=== PATIENT | female | born 1955 | race Caucasian/White ===

== ENCOUNTER 2020-04-21 14:40 | Outpatient (REF) | payer MEDICARE, SELFPAY ==
--- NOTE | 2020-04-21 | MM_ITS ---
EXAMINATION: MM SCREENING DIGITAL BREAST TOMOSYNTHESIS, BILATERAL CLINICAL INFORMATION: Screening. Asymptomatic. The lifetime risk of breast cancer based on the Tyrer-Cuzick Model is 12%. COMPARISON: Mammography: 04/04/2019, 07/19/2008; targeted left breast ultrasound 04/20/2019 and 10/19/2019; outside mammography 12/11/2017, 11/29/2017, 09/06/2016 ([facility]). TECHNIQUE: Digital breast tomosynthesis is performed in both the craniocaudal and mediolateral oblique views along with computer-aided detection (CAD). Synthesized 2D images are generated from the tomosynthesis. FINDINGS: The breasts are heterogeneously dense, which may obscure small masses (ACR BI-RADS breast composition Category c). The denser parenchymal pattern is in the upper outer quadrants. Again, there are fibrocystic changes with scattered bilateral oval and round smooth masses similar to prior exams. There is no significant mass or architectural abnormality. No abnormal calcifications. No significant changes. IMPRESSION: No significant changes from prior studies. ASSESSMENT: BI-RADS 2: Benign RECOMMENDATION: Routine annual mammography screening. This patient's information was entered into a reminder system with a target due date for their next mammogram.
[2020-04-21 17:18] LABS: T4 Thyroxine 7.9 ug/dL (4.5-12.0); Thyroid Stimulating Hormone 4.09 mIU/mL (0.32-4.0)
== END 2020-04-21 14:41 | disposition home or self-care (01) ==
LOC: HO.MAMMO 14:40
PROVIDERS: PCP Family Medicine; Visit Provider Family Medicine
DX: Z12.31 Encounter for screening mammogram for malignant neoplasm of breast (principal); E03.9 Hypothyroidism, unspecified
CPT/HCPCS: 36415; 77063; 77067; 78014; 84436; 84443

== ENCOUNTER 2020-06-15 08:33 | Outpatient (REF) | payer MEDICARE, SELFPAY | END 2020-06-15 08:34 | disposition home or self-care (01) | LOC: HO.HMGCLDS 08:33 | PROVIDERS: PCP Family Medicine; Visit Provider Internal Medicine | DX: Z20.828 Contact with and (suspected) exposure to other viral communicable diseases (principal) | CPT/HCPCS: C9803; U0003 ==

== ENCOUNTER 2020-10-05 09:40 | Outpatient (REF) | payer MEDICARE, SELFPAY ==
[2020-10-05 12:09] LABS: Free T4 (Free Thyroxine) 0.89 ng/dL (0.71-1.85)
== END 2020-10-05 09:41 | disposition home or self-care (01) ==
LOC: HO.LAB 09:40
PROVIDERS: Absent Provider Family Medicine; PCP Family Medicine; Visit Provider Surgery
DX: L98.9 Disorder of the skin and subcutaneous tissue, unspecified (principal); E03.9 Hypothyroidism, unspecified
CPT/HCPCS: 36415; 84439; 84443; 99202

== ENCOUNTER 2020-10-26 12:46 | Outpatient (REF) | payer MEDICARE, SELFPAY ==
[2020-10-26 12:35] VITALS: BP 161/94; PULSE 79; RESP 19; TEMP 37.2; O2SAT 97; BMI 34.3
--- NOTE | 2020-10-26 13:11 | W.PM.OPN ---
Operative Note Operative Note Date of Service: 10/26/20 Narrative: Preop diagnosis: Multiple skin lesions on the face Postop diagnosis: Multiple skin lesions on the face Procedure: Excision x3 and cauterization x1 of skin lesions on the face under local anesthesia Surgeon: Floyd Huang MD The patient is a 65 year female who wanted skin lesions on the face removed. She pointed to 3 skin lesions the left side of her face at the cheek, measuring in size from about 2 mm to about 4 mm . She pointed to a skin lesion on the right side of the he is the upper eyelid area measuring about 4 mm on a narrow stalk. All of these had narrow bases and were consistent with papillomatous lesions. She understood the technique of excision/cauterization under local anesthesia. She was aware of the risks, benefits, and alternatives. She was brought to the minor procedure room. She was placed supine. Alll the lesions were prepped and draped. Lidocaine 1% was used to infiltrate the bases of each lesions an. I then excised these lesions using fine scissors at the base. I cauterized the excision sites using an i-STAT for hemostasis. There was a small lesion measuring about 2 mm in size the left cheek that was cauterized. I applied Steri-Strips on all of the excision sites. She tolerated the procedure well with and there were no complications noted. She was instructed on wound care. There was minimal blood loss. She will see me in the office in about 1-2 weeks for a wound check.
== END 2020-10-26 12:47 | disposition home or self-care (01) ==
LOC: HO.MS 12:46
PROVIDERS: PCP Family Medicine; Visit Provider Surgery
PROC: (CPT 11440; principal; 2020-10-26 13:00)
DX: L98.9 Disorder of the skin and subcutaneous tissue, unspecified (principal)
CPT/HCPCS: 11440; 88304

== ENCOUNTER → 2020-11-03 11:13 | Outpatient (BNVA) | payer MEDICARE, SELFPAY | PROVIDERS: PCP Family Medicine; Visit Provider Surgery | DX: Z48.817 Encounter for surgical aftercare following surgery on the skin and subcutaneous tissue (principal); Z87.2 Personal history of diseases of the skin and subcutaneous tissue | CPT/HCPCS: 99212 ==

== ENCOUNTER 2020-12-08 21:09 | Emergency (ER) | payer MEDICARE, SELFPAY ==
[2020-12-08 21:25] VITALS: BP 146/77; PULSE 81; RESP 18; TEMP 37.4; O2SAT 96; BMI 34.3
== END 2020-12-08 22:39 | disposition left against medical advice (07) ==
PROVIDERS: Emergency Provider Emergency Medicine; PCP Family Medicine
DX: S00.512A Abrasion of oral cavity, initial encounter (principal); W45.8XXA Other foreign body or object entering through skin, initial encounter; Y93.89 Activity, other specified; Y92.010 Kitchen of single-family (private) house as the place of occurrence of the external cause; Y99.9 Unspecified external cause status
CPT/HCPCS: 99281; 99282

== ENCOUNTER 2021-01-30 13:14 | Outpatient (REF) | payer MEDICARE, SELFPAY ==
--- NOTE | ~2021-01-30 | US_ITS ---
EXAMINATION: US VENOUS ULTRASOUND WITH DOPPLER LOWER EXTREMITY, LEFT CLINICAL INFORMATION: Left lower extremity pain and swelling. Possible ruptured Somers's cyst. Assess for occult DVT. COMPARISON: None TECHNIQUE: Ultrasound of the deep veins is performed from the hip to the calf with compression sonography and color and pulse Doppler assessment. Spectral analysis with color-flow imaging is performed. FINDINGS: There is normal venous compression and respiratory variation and augmented flow. The visualized common femoral vein, superficial femoral vein, profunda femoral vein, popliteal vein, and the trifurcation region shows no evidence of deep venous thrombosis. There is no popliteal fossa cyst demonstrated. No fluid tracking in soft tissue planes to suggest ruptured Somers's cyst. US/US venous duplex LE LT IMPRESSION: 1. No DVT demonstrated in the left lower extremity. 2. No popliteal fossa cyst or fluid tracking in soft tissue planes calf.
== END 2021-01-30 13:15 | disposition home or self-care (01) ==
LOC: HO.HMGCX 13:14
PROVIDERS: PCP Family Medicine; Visit Provider Family Medicine
DX: R22.42 Localized swelling, mass and lump, left lower limb (principal); M79.662 Pain in left lower leg
CPT/HCPCS: 93971

== ENCOUNTER 2021-03-16 15:05 | Outpatient (REF) | payer MEDICARE, SELFPAY ==
--- NOTE | ~2021-03-16 | XR_ITS ---
EXAMINATION: XR KNEE, LEFT CLINICAL INFORMATION: Pain COMPARISON: None TECHNIQUE: Four views of the left knee. FINDINGS: Bone alignment is normal. No fracture or dislocation is seen. The joint spaces are normal. There is an osteophyte at the tibial tubercle probably related to old Cirilo-Schlatter's disease. There are osteophytes at the quadriceps tendon insertion to the patella and patellar tendon origin. There is a small joint effusion. XR/XR knee LT 4V IMPRESSION: Patellar osteophytes and small joint effusion.
[2021-03-16 15:47] LABS: Anion Gap 12 (12-20); Blood Urea Nitrogen 11 mg/dL (9-16); Carbon Dioxide 29 mmol/L (22-29); Chloride 104 mmol/L (96-108); Estimated Glomerular Filt Rate > 60; Potassium 4.2 mmol/L (3.3-5.1); Sodium 141 mmol/L (135-145)
[2021-03-16 16:11] LABS: Free T4 (Free Thyroxine) 0.93 ng/dL (0.71-1.85); Thyroid Stimulating Hormone 4.18 uIU/mL (0.32-4.0)
== END 2021-03-16 15:06 | disposition home or self-care (01) ==
LOC: HO.LAB 15:05
PROVIDERS: PCP Family Medicine; Visit Provider Family Medicine
DX: I10 Essential (primary) hypertension (principal); E03.9 Hypothyroidism, unspecified; M25.562 Pain in left knee
CPT/HCPCS: 36415; 73564; 80051; 82565; 84439; 84443; 84520

== ENCOUNTER → 2021-03-28 13:33 | Outpatient (BNVA) | payer MEDICARE, SELFPAY | PROVIDERS: PCP Family Medicine; Visit Provider Physician Assistant | DX: M25.462 Effusion, left knee (principal) | CPT/HCPCS: 20610; 99202; J1040 ==

== ENCOUNTER 2021-04-29 08:02 | Outpatient (REF) | payer MEDICARE, SELFPAY ==
--- NOTE | ~2021-04-29 | MM_ITS ---
EXAMINATION: MM SCREENING DIGITAL BREAST TOMOSYNTHESIS, BILATERAL CLINICAL INFORMATION: Screening. Asymptomatic. The lifetime risk of breast cancer based on the Tyrer-Cuzick Model is 14%. COMPARISON: Mammography: 04/21/2020, 04/20/2019, 04/04/2019, 12/11/2017, 11/29/2017, 09/06/2016; targeted left breast ultrasound 10/19/2019, 04/20/2019. TECHNIQUE: Digital breast tomosynthesis is performed in both the craniocaudal and mediolateral oblique views along with computer-aided detection (CAD). Synthesized 2D images are generated from the tomosynthesis. FINDINGS: The breasts are heterogeneously dense, which may obscure small masses (ACR BI-RADS breast composition Category c). There are no significant masses, abnormal calcifications, or other abnormalities. There is no interval developing density or significant mass or architectural abnormality from prior study. Fibrocystic changes are decreased particularly significant decrease in the smooth mass anterior 11:30 o'clock right breast prior exams. There are no abnormal calcifications. Skin contours are smooth. Dermal lesion again seen overlying lower right breast. MM/MM tomosynthesis screening BI IMPRESSION: No mammographic evidence of malignancy. ASSESSMENT: BI-RADS 2: Benign RECOMMENDATION: Routine annual mammography screening. This patient's information was entered into a reminder system with a target due date for their next mammogram.
== END 2021-04-29 08:03 | disposition home or self-care (01) ==
LOC: HO.MAMMO 08:02
PROVIDERS: Visit Provider Family Medicine
DX: Z12.31 Encounter for screening mammogram for malignant neoplasm of breast (principal)
CPT/HCPCS: 77063; 77067

== ENCOUNTER → 2021-05-26 12:59 | Outpatient (BNVA) | payer MEDICARE, SELFPAY | PROVIDERS: PCP Family Medicine; Visit Provider Physician Assistant | DX: M25.462 Effusion, left knee (principal) | CPT/HCPCS: 99212 ==

== ENCOUNTER 2021-09-14 13:25 | Outpatient (REF) | payer MEDICARE, SELFPAY ==
[2021-09-14 13:37] LABS: MANUAL DIFF FLAG NO
[2021-09-14 13:56] LABS: Basophils Absolute Auto 0.1 X10*3/uL (0.0-0.2); Basophils Percent Auto 0.9 % (0-2); Eosinophils Absolute Auto 0.2 X10*3/uL (0.0-0.4); Eosinophils Percent Auto 2.4 % (0-4); Hematocrit 43.6 % (37.0-47.0); Hemoglobin 13.9 g/dl (12.0-16.0); Imm Gran Abs Auto 0.03 X10*3/uL (0.00-0.03); Imm Gran Pct Auto 0.4 % (0.0-0.4); Lymphocytes Absolute Auto 2.3 X10*3/uL (1.2-4.9); Mean Corpuscular HGB Conc 31.9 g/dl (31.0-35.0); Mean Corpuscular Hemoglobin 28.7 pg (27.0-33.0); Mean Corpuscular Volume 90.1 fL (80.0-98.0); Mean Platelet Volume 10.4 fL (9.4-12.3); Monocytes Absolute Auto 0.7 X10*3/uL (0.1-1.2); Monocytes Percent Auto 8.6 % (2-11); Neutrophils Absolute Auto 4.4 x10*3/uL (2.0-8.3); Neutrophils Percent Auto 57.7 % (45-73); Platelet Count 297 X10*3/uL (160-400); Red Blood Count 4.84 X10*6/uL (4.20-5.50); Red Cell Distribution Width 13.2 % (11.0-16.0); White Blood Count 7.6 X10*3/uL (4.8-10.8)
[2021-09-14 14:17] LABS: Alanine Aminotransferase 47 U/L (0-31); Anion Gap 12 (12-20); Blood Urea Nitrogen 12 mg/dL (9-16); Carbon Dioxide 29 mmol/L (22-29); Chloride 102 mmol/L (96-108); Estimated Glomerular Filt Rate > 60; Potassium 4.2 mmol/L (3.3-5.1); Sodium 139 mmol/L (135-145)
[2021-09-14 14:39] LABS: Thyroid Stimulating Hormone 1.75 uIU/mL (0.32-4.0)
== END 2021-09-14 13:26 | disposition home or self-care (01) ==
LOC: HO.LAB 13:25
PROVIDERS: PCP Family Medicine; Visit Provider Family Medicine
DX: I10 Essential (primary) hypertension (principal); E03.9 Hypothyroidism, unspecified; Z79.899 Other long term (current) drug therapy
CPT/HCPCS: 36415; 80051; 82550; 82565; 84439; 84443; 84460; 84520; 85025

== ENCOUNTER 2022-01-29 13:49 | Outpatient (REF) | payer MEDICARE, SELFPAY ==
--- NOTE | ~2022-01-29 | XR_ITS ---
EXAMINATION: XR KNEE, LEFT CLINICAL INFORMATION: Pain in left knee COMPARISON: Left knee 03/16/2021 TECHNIQUE: Four views of the left knee. FINDINGS: There is marked joint narrowing of the medial femoral tibial joint. Subchondral cystic change of the medial femoral condyle. Marginal bone spurs of the tibia and femur at this joint compartment. These degenerative changes of the joint have progressed since prior study of 03/18/2021. The lateral femoral tibial joint is normal. There are small spurs of the patella at the patellofemoral joint. No chondrocalcinosis. No joint effusion. No fracture or dislocation. XR/XR knee LT 3V IMPRESSION: Marked degenerative change of the medial femoral tibial joint.
== END 2022-01-29 13:50 | disposition home or self-care (01) ==
LOC: HO.XRAY 13:49
PROVIDERS: PCP Internal Medicine; Visit Provider Internal Medicine
DX: M25.562 Pain in left knee (principal)
CPT/HCPCS: 73562

== ENCOUNTER → 2022-02-20 12:15 | Outpatient (BNVA) | payer MEDICARE, SELFPAY | PROVIDERS: PCP Internal Medicine; Visit Provider Physician Assistant | DX: M25.462 Effusion, left knee (principal) | CPT/HCPCS: 20610; 99212; J1040 ==

== ENCOUNTER 2022-03-01 15:00 | Outpatient (RCR) | payer MEDICARE, SELFPAY ==
--- NOTE | 2022-02-19 14:43 | MHC.PT.EP ---
[facility] [place] Office [place] [facility] [place] Office [address]inoza [address] [phone] F: [phone] F: [phone] F: [phone] F: [phone] Physical Therapy Plan of Care Date of Evaluation: Date of Surgery: n/a Diagnosis: Effusion of L knee Assessment: Patient is a 66 year old female presenting to PT with complaints of pain in her L knee. Pt reports onset of pain began about 1 year ago due to a bakers cyst rupture. She presents today with impairments in pain, knee strength, hip strength. 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 Clinical presentation today is most consistent with signs and sx associated with x-ray findings of knee arthritis and pt will benefit from skilled PT to address the following problems and impairments noted upon evaluation: pain, knee strength, hip strength. These problems limit the patient with the following functional activities: ambulation, stair negotiation, gardening, walking dogs. The prescribed treatment plan of care is medically necessary. Co-morbidities of HTN were identified and taken into considerations of plan of care. Pt was educated on HEP, role of PT, prognosis, POC. Frequency and Duration: The patient will be seen 2 x week x 4 weeks Short Term Goals: Pt will demonstrate improved L knee ROM to pain free in 2 weeks. Pt will demonstrate improved knee MMT strength to 5/5 in 2 weeks. Pt will demonstrate improved hip MMT strength by 1/3 MMT in 2 weeks. Retirement Goals: Pt will demonstrate improved LEFI score by 9 points in 4 weeks for improved functional mobility. Pt will demonstrate ability to ambulate on a variety of surfaces with min to no pain in 4 weeks for improved ability to walk her dogs. Pt will demonstrate ability to negotiate stairs with min to no pain in 4 weeks for improved access to her home. Treatment Plan: Modalities to reduce pain, spasms and effusion. Manual therapy to restore motion and function. Therapeutic exercise to improve strength and flexibility. Neuromuscular re-education for posture and balance. Therapeutic activities to return to functional activities of daily living. Electronically signed by: Mendy Aguilera, PT, DPT, ATC Please sign and return to therapist. Thank you for your referral.
--- NOTE | 2022-03-02 08:50 | MHC.PT.DC ---
[facility] [place] Office [place] Office [place] Office [address] [phone] F: [phone] F: [phone] F: [phone] F: [phone] Physical Therapy Discharge Report Diagnosis: Effusion of L knee Date of Surgery: n/a Date of Evaluation: 02/19/22 Date of Discharge: 03/02/22 Treatments to Date: 3 Cancellations to Date: 0 No Shows to Date: 0 Discharge Status: Patient Elected to Stop Discharge Summary: Pt self d/c. Has a high copay and states her pain is better. Would like to continue with HEP at home. Electronically signed by: Mendy Aguilera, PT, DPT, ATC Please sign and return to therapist. Thank you for your referral.
== END 2022-03-02 08:50 | disposition home or self-care (01) ==
LOC: HO.PTCHIC 15:00
PROVIDERS: PCP Internal Medicine; Visit Provider Physician Assistant
DX: M25.462 Effusion, left knee (principal)
CPT/HCPCS: 97110; 97161

== ENCOUNTER 2022-05-05 07:55 | Outpatient (REF) | payer MEDICARE, SELFPAY ==
--- NOTE | ~2022-05-05 | MM_ITS ---
EXAMINATION: MM SCREENING DIGITAL BREAST TOMOSYNTHESIS, BILATERAL CLINICAL INFORMATION: Screening. Asymptomatic. The lifetime risk of breast cancer based on the Tyrer-Cuzick Model is 11%. COMPARISON: Mammography: 04/29/2021, 04/21/2020; outside mammography 04/04/2019, 12/11/2017, 11/29/2017 ([facility]), ultrasound left breast 04/20/2019, 10/19/2019. TECHNIQUE: Digital breast tomosynthesis is performed in both the craniocaudal and mediolateral oblique views along with computer-aided detection (CAD). Synthesized 2D images are generated from the tomosynthesis. FINDINGS: The breasts are heterogeneously dense, which may obscure small masses (ACR BI-RADS breast composition Category c). Fibrocystic changes noted on prior imaging. Current exam shows circumscribed smooth mass central 11:30 left breast approximately 1.7 x 1.4 cm, likely a cyst. Patient will be recalled for targeted ultrasound. Right breast has a smooth 1.5 cm mass with obscured margins mid 11:30. There is focal increased parenchymal attenuation mid upper right breast on MLO view likely summation artifact. Patient will be recalled for additional spot views and targeted ultrasound. The remainder of the breasts show no significant changes from prior studies. No other significant mass or architectural abnormality or abnormal calcifications. The axilla and skin contours are unremarkable. MM/MM tomosynthesis screening BI IMPRESSION: Right: -1.5 cm mass with obscured margins mid 11:30, likely a cyst. -Focal asymmetric density mid upper breast on MLO view, likely summation artifact. Left: -Circumscribed mass 1.7 cm central left 11:30, likely a cyst. ASSESSMENT: BI-RADS 0: Incomplete - Need Additional Imaging Evaluation RECOMMENDATION: 1. Additional views of the right breast (spot MLO, ML). 2. Bilateral targeted ultrasound. 3. Radiology department staff will contact the patient for additional imaging. This patient's information was entered into a reminder system with a target due date for their next mammogram.
== END 2022-05-05 07:56 | disposition home or self-care (01) ==
LOC: HO.MAMMO 07:55
PROVIDERS: PCP Internal Medicine; Visit Provider Internal Medicine
DX: Z12.31 Encounter for screening mammogram for malignant neoplasm of breast (principal)
CPT/HCPCS: 77063; 77067

== ENCOUNTER 2022-05-09 07:48 | Outpatient (REF) | payer MEDICARE, SELFPAY ==
--- NOTE | ~2022-05-09 | MM_ITS ---
EXAMINATION: MM DIAGNOSTIC DIGITAL BREAST TOMOSYNTHESIS, RIGHT US DIAGNOSTIC ULTRASOUND BREAST, BILATERAL CLINICAL INFORMATION: Recall from screening for bilateral oval circumscribed masses, and parenchymal asymmetry upper right breast, suspected summation artifact. COMPARISON: Mammography: 05/05/2022, 04/29/2021 TECHNIQUE: Digital breast tomosynthesis is performed. 2D images are generated from the tomosynthesis. The following views are obtained: Spot MLO x2, ML. Bilateral targeted breast ultrasound is performed using grayscale imaging and color Doppler without and with harmonics. FINDINGS: The breasts are heterogeneously dense, which may obscure small masses (ACR BI-RADS breast composition Category c). The additional views right breast show no persistent asymmetric density or architectural abnormality upper breast. Finding noted at screening on MLO view consistent with summation artifact as suspected. Ultrasound right breast demonstrates a dominant simple cyst 12:00 position 8 cm from nipple measuring 1.5 cm. There are 2 small satellite simple cysts in the interrogated areas measuring under 0.5 cm. The cysts are anechoic and show increased through-transmission of sound. No color flow. Ultrasound left breast demonstrates a dominant simple cyst 11:00 position 9 cm from nipple measuring 1.5 cm. There are scattered small satellite simple cysts in the interrogated area measuring under 0.5 cm. The cysts are anechoic and show increased through-transmission of sound. No color flow. Results are discussed with the patient at time of visit. MM/MM tomosynthesis added views R IMPRESSION: 1. Additional views show no persistent asymmetric density or architectural abnormality. 2. Bilateral simple cysts, largest on right 1.5 cm and largest on left 1.5 cm. ASSESSMENT: BI-RADS 2: Benign RECOMMENDATION: Routine annual mammography screening. This patient's information was entered into a reminder system with a target due date for their next mammogram.
== END 2022-05-09 07:49 | disposition home or self-care (01) ==
LOC: HO.MAMMO 07:48
PROVIDERS: PCP Internal Medicine; Visit Provider Internal Medicine
DX: N63.15 Unspecified lump in the right breast, overlapping quadrants (principal); N63.22 Unspecified lump in the left breast, upper inner quadrant
CPT/HCPCS: 76642; 77061; 77065

== ENCOUNTER 2022-10-22 08:26 | Outpatient (REF) | payer MEDICARE, SELFPAY ==
[2022-10-22 10:00] LABS: Alanine Aminotransferase 54 U/L (0-31); Anion Gap 10 (12-20); Aspartate Amino Transferase 46 U/L (5-31); Blood Urea Nitrogen 12 mg/dL (9-16); Calcium 9.4 mg/dL (8.4-10.2); Carbon Dioxide 30 mmol/L (22-29); Chloride 104 mmol/L (96-108); Cholesterol 195 mg/dL; Estimated Glomerular Filt Rate > 60; Glucose Fasting 155 mg/dL (60-99); HDL Cholesterol 37 mg/dL; LDL Cholesterol Calculated 118 mg/dl; Potassium 4.6 mmol/L (3.3-5.1); Sodium 139 mmol/L (135-145); Triglycerides 204 mg/dL
[2022-10-22 10:04] LABS: Free T4 (Free Thyroxine) 0.81 ng/dL (0.71-1.85); Vitamin D 25-OH Total 16.5 ng/mL (>30)
== END 2022-10-22 08:27 | disposition home or self-care (01) ==
LOC: HO.LAB 08:26
PROVIDERS: PCP Internal Medicine; Visit Provider Internal Medicine
DX: E78.5 Hyperlipidemia, unspecified (principal); E03.9 Hypothyroidism, unspecified; Z78.0 Asymptomatic menopausal state
CPT/HCPCS: 36415; 80048; 80061; 82306; 84439; 84443; 84450; 84460

== ENCOUNTER 2022-11-16 07:14 | Outpatient (REF) | payer MEDICARE, SELFPAY ==
--- NOTE | ~2022-11-16 | XR_ITS ---
EXAMINATION: Knee x-ray CLINICAL INFORMATION: Pain COMPARISON: Previous x-ray January 2022 TECHNIQUE: Standing AP view of both knees and lateral and sunrise view of the left knee FINDINGS: Left: Bone alignment is normal. Cortical irregularity of the medial femoral condyle questionable old osteochondritis desiccation's or subchondral injury. Medial femoral tibial joint space narrowing. Arthritis at the medial femoral tibial and patellofemoral joints. Osteophyte at the quadriceps tendon insertion to the patella and patellar tendon origin. Small joint effusion. Standing AP view of the right knee demonstrates arthritis at the medial femoral tibial joint XR/XR knee standing BI IMPRESSION: New subchondral irregularity of the medial femoral condyle suggestive of subchondral injury or osteochondritis dissecans. Arthritis at the medial femoral tibial and patellofemoral joints.
--- NOTE | ~2022-11-16 | XR_ITS ---
EXAMINATION: Knee x-ray CLINICAL INFORMATION: Pain COMPARISON: Previous x-ray January 2022 TECHNIQUE: Standing AP view of both knees and lateral and sunrise view of the left knee FINDINGS: Left: Bone alignment is normal. Cortical irregularity of the medial femoral condyle questionable old osteochondritis desiccation's or subchondral injury. Medial femoral tibial joint space narrowing. Arthritis at the medial femoral tibial and patellofemoral joints. Osteophyte at the quadriceps tendon insertion to the patella and patellar tendon origin. Small joint effusion. 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 Arthritis at the medial femoral tibial and patellofemoral joints.
== END 2022-11-16 07:15 | disposition home or self-care (01) ==
LOC: HO.HOSX 07:14
PROVIDERS: Visit Provider Physician Assistant
DX: M17.12 Unilateral primary osteoarthritis, left knee (principal)
CPT/HCPCS: 20610; 73560; 73565; 99212; J1040

== ENCOUNTER 2022-11-26 14:24 | Outpatient (REF) | payer MEDICARE, SELFPAY ==
[2022-11-26 16:40] LABS: Estimated Average Glucose 166 mg/dL; Hemoglobin A1c % 7.4 %
== END 2022-11-26 14:25 | disposition home or self-care (01) ==
LOC: HO.HMGCLDS 14:24
PROVIDERS: PCP Internal Medicine; Visit Provider Internal Medicine
DX: R73.01 Impaired fasting glucose (principal); Z83.3 Family history of diabetes mellitus
CPT/HCPCS: 36415; 83036

== ENCOUNTER 2023-04-23 08:06 | Outpatient (REF) | payer MEDICARE, SELFPAY | END 2023-04-23 08:07 | disposition home or self-care (01) | LOC: HO.MAMMO 08:06 | PROVIDERS: PCP Internal Medicine; Visit Provider Internal Medicine | DX: Z13.820 Encounter for screening for osteoporosis (principal); Z78.0 Asymptomatic menopausal state; E55.9 Vitamin D deficiency, unspecified | CPT/HCPCS: 77080 ==

== ENCOUNTER 2023-05-11 07:48 | Outpatient (REF) | payer MEDICARE, SELFPAY ==
--- NOTE | ~2023-05-11 | MM_ITS ---
EXAMINATION: MM SCREENING DIGITAL MAMMOGRAPHY, BILATERAL CLINICAL INFORMATION: Screening. Asymptomatic. COMPARISON: Mammography: This study is compared with prior exams dating back to 2019. TECHNIQUE: 2-D Digital mammography and tomosynthesis is performed in craniocaudal and mediolateral oblique views along with computer-aided detection (CAD). FINDINGS: There are scattered areas of fibroglandular density (ACR BI-RADS breast composition Category b). In the upper outer quadrant of the left breast, there is an asymmetry for which additional mammographic imaging is advised. Sonography may be performed at the discretion of the diagnostic radiologist. When the additional imaging is performed, a laterally exaggerated 2-D craniocaudal view of the left breast with tomosynthesis is advised. In the right breast, there are no significant masses, abnormal calcifications, or other abnormalities. MM/MM screening mammo BI IMPRESSION: Left breast asymmetry warrants additional mammographic imaging. Sonography may be performed at the discretion of the diagnostic radiologist. When the additional imaging is performed, a laterally exaggerated 2-D craniocaudal view of the left breast with tomosynthesis is advised. No mammographic signs of malignancy right breast. ASSESSMENT: BI-RADS BI-RADS 0 - Incomplete: Needs additional Imaging. RECOMMENDATION: 1. Additional views of the left breast 2. Targeted ultrasound if warranted after review of the additional views. 3. Radiology department staff will contact the patient for additional imaging. Additional Imaging required This patient's information was entered into a reminder system with a target due date for their next mammogram.
== END 2023-05-11 07:49 | disposition home or self-care (01) ==
LOC: HO.MAMMO 07:48
PROVIDERS: PCP Internal Medicine; Visit Provider Internal Medicine
DX: Z12.31 Encounter for screening mammogram for malignant neoplasm of breast (principal)
CPT/HCPCS: 77063; 77067

== ENCOUNTER → 2023-05-11 08:00 | Outpatient (BNV) | payer MEDICARE, SELFPAY | PROVIDERS: PCP Internal Medicine; Visit Provider Radiology Diagnostic Radiology | DX: Z12.31 Encounter for screening mammogram for malignant neoplasm of breast (principal) | CPT/HCPCS: 77063; 77067 ==

== ENCOUNTER 2023-05-21 09:35 | Outpatient (AMB) | payer MEDICARE, SELFPAY ==
[2023-05-21 11:19] VITALS: BP 140/82; PULSE 82; TEMP 36.6; O2SAT 98; BMI 34.3
--- NOTE | 2023-05-21 11:19 | AM.OFFWIN_ITS ---
Intake Vital Signs 05/21/23 11:19 Height 5 ft 4 in Weight 200 lb BMI 34.3 BP 140/82 H Blood Pressure Location Rt brachial Position Sitting Pulse 82 Pulse Source Pulse Oximeter Temp 97.8 F Temp Source Temporal Artery Scan Pulse Oximetry (%) 98 Oxygen Delivery Method Room Air Intake Visit Reasons: EP, left side of hip and leg pain Intake Note: pt is here today for left side of hip and leg pain Patient Tobacco Use Status: Never used Tobacco Allergies Sulfa (Sulfonamide Antibiotics) Allergy (Unknown, Verified 05/21/23 11:48) Unknown Medication List - Last Reconciled 05/21/23 by Jacobo Frederick MD cholecalciferol (vitamin D3) 1,250 mcg PO QWEEK 3 months diclofenac sodium 1% 4 grams topical QID PRN diclofenac sodium 3% 0.1 grams topical BID 90 days levothyroxine 125 mcg PO DAILY lisinopril 10 mg PO DAILY Do you need a note to return to daycare/school/sports/work: Yes HPI EP, left side of hip and leg pain HPI Details 68-year-old female presents to the [facility] for a sick visit. Patient is complaining of pain in the left hip for the past 3 days. Pain is radiating into the left leg. No fall or injury. She has difficulty walking and comes into the exam room in a wheelchair. [facility] Medical History (Updated 05/21/23 @ 11:49 by Jacobo Frederick MD) Essential hypertension Family history of diabetes mellitus in first degree relative Impaired fasting glucose Vitamin D deficiency Lumbago without sciatica History of depression Seasonal allergies Osteoarthritis of left knee Atrophic vaginitis History of COVID-19 Urinary, incontinence, stress female Dyslipidemia Acquired hypothyroidism Skin lesion of face Surgical History History of cataract surgery History of right cataract surgery History of carpal tunnel surgery of right wrist H/O tubal ligation Hx of tonsillectomy History of excision of lesion Family History (Updated 11/26/22 @ 14:37 by Nesha Jay MD) Mother Colon cancer Diabetes mellitus Father Diabetes mellitus Social History Housing: House Alcohol intake: never Patient Tobacco Use Status: Never used Tobacco e-Cigarette/Vaping Use: Never Used Current occupational status: employed 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 Cognitive needs: No Hearing needs: No Vision needs: Yes Physical Exam Vital Signs: Last Vital Signs Temp 97.8 F 05/21/23 11:19 Pulse 82 05/21/23 11:19 BP 140/82 H 05/21/23 11:19 Pulse Ox 98 05/21/23 11:19 Oxygen Delivery Method Room Air 05/21/23 11:19 BMI result Body Mass Index 34.3 Const General: cooperative and healthy appearing Nutritional Appearance: well nourished Orientation/consciousness: patient oriented x3 Limitations: no limitations HEENT Head: Yes normal to inspection Eyes General: appearance normal, both eyes and all related structures Neck Neck: Yes normal visual inspection Chest Chest palpation & inspection: normal palpation of entire chest wall Resp Effort & Inspection: normal respiratory effort Neuro General: patient oriented x3 Extrem Other: Left hip: Pain on abduction. Internal and external rotation elicits minimal pain. Assessment & Plan Assessment & Plan (1) Left hip pain: Code(s): M25.552 - Pain in left hip Plan: Toradol injection provided. Anti-inflammatories and muscle relaxant called in. Physical therapy suggested. Patient was advised rest. Orders: Orders AMB Ketorolac Injection Today M54.50 - Low back pain, unspecified Medications: New ketorolac 30 mg IM ONCE 1 mL 0RF M54.50 - Low back pain, unspecified ketorolac 60 mg (2 mL) IM ONCE 2 mL 0RF M54.50 - Low back pain, unspecified Coding Level of Care Code Est Pt Level 4 (07894) Diagnoses Left hip pain M25.552
== END 2023-05-21 12:50 | disposition home or self-care (01) ==
PROVIDERS: PCP Internal Medicine; Visit Provider Internal Medicine
DX: M25.552 Pain in left hip (principal); M54.50 Low back pain, unspecified
CPT/HCPCS: 96372; 99214; J1885

== ENCOUNTER 2023-06-19 13:43 | Outpatient (REF) | payer MEDICARE, SELFPAY ==
--- NOTE | ~2023-06-19 | US_ITS ---
EXAMINATION: MM DIAGNOSTIC DIGITAL BREAST TOMOSYNTHESIS, LEFT US BREAST LIMITED, LEFT MAMMOGRAPHY: CLINICAL INFORMATION: Asymmetry left breast upper quadrant. COMPARISON: Mammography: 05/11/2023, 05/05/2022, 04/29/2021. TECHNIQUE: Digital left breast tomosynthesis is performed in the following views: Full-field left 3-D mediolateral view, 3-D spot compression left MLO view, and a full-field left lateral exaggerated CC view. FINDINGS: The breasts are heterogeneously dense, which may obscure small masses (ACR BI-RADS breast composition Category c). Spot magnification views and additional views demonstrate persistence of nodular asymmetry in the upper outer left breast, similar to prior exams. This will be evaluated by ultrasound. Otherwise, no additional masses, suspicious grouped calcifications, or areas of architectural distortion. ULTRASOUND: CLINICAL INFORMATION: Asymmetry left breast upper outer quadrant. COMPARISON: 05/09/2022 TECHNIQUE: Targeted sonographic evaluation was performed using a high frequency linear transducer. Selected archived documentation. FINDINGS: LEFT BREAST: There is fibrocystic tissue in the superior lateral left breast. There are are numerous cysts of different caliber in this region, the largest measuring 1.0 cm. There are at least 2 ridges of fibrocystic tissue in the upper outer left breast. There is no suspicious mass, abnormal shadowing, or other abnormality. US/US breast LT limited mamm only IMPRESSION: Benign fibrocystic changes in the upper outer left breast, similar to prior studies. No further follow-up recommended. Recommend the patient resume routine annual screening. OVERALL ASSESSMENT: Mammography: BI-RADS 2 - Benign Findings Ultrasound: BI-RADS 2 - Benign Findings RECOMMENDATION: 1 year F/U Results were provided to the patient at time of visit by the technologist. This patient's information was entered into a reminder system with a target due date for their next mammogram.
== END 2023-06-19 13:44 | disposition home or self-care (01) ==
LOC: HO.MAMMO 13:43
PROVIDERS: PCP Internal Medicine; Visit Provider Internal Medicine
DX: N64.89 Other specified disorders of breast (principal)
CPT/HCPCS: 76642; 77061; 77065

== ENCOUNTER → 2023-06-19 15:00 | Outpatient (BNV) | payer MEDICARE, SELFPAY | PROVIDERS: PCP Internal Medicine; Visit Provider Radiology Diagnostic Radiology | DX: R92.332 Mammographic heterogeneous density, left breast (principal); N60.22 Fibroadenosis of left breast | CPT/HCPCS: 76642; 77061; 77065 ==

== ENCOUNTER 2023-07-18 14:00 | Outpatient (RCR) | payer MEDICARE, SELFPAY ==
--- NOTE | 2023-06-10 14:50 | MHC.PT.EP ---
[facility] [place] Office [place] Office [place] Office [address] [phone] F: [phone] F: [phone] F: [phone] F: [phone] Physical Therapy Plan of Care Date of Evaluation: 06/10/23 Date of Surgery: Diagnosis: pain in L hip Assessment: 68 y/o female referred to PT with L hip pain. 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 Examination shows decreased lumbar AROM (especially extension with pain), decreased L LE strength, intact reflexes/sensation, (+) L SLR, increased pain and impaired gait pattern. Recommend PT 2x/week for 5 weeks to address impairments, implement HEP, and optimize functional mobility. Frequency and Duration: The patient will be seen 2x/week for 5 weeks Short Term Goals: 3 weeks Compliant with HEP Pt will improve L LE strength to 4-/5 to facilitate ADL's Residential Goals: 5 weeks I with HEP and self management of sx Pt will be able to ambulate with LRAD > 25 min with pain < 3/10 Improve LEFS to 40/80 (16/80 IR) Treatment Plan: Modalities to reduce pain, spasms and effusion. Manual therapy to restore motion and function. Therapeutic exercise to improve strength and flexibility. Neuromuscular re-education for posture and balance. Therapeutic activities to return to functional activities of daily living. Electronically signed by: Michelle Gomez PT Please sign and return to therapist. Thank you for your referral.
--- NOTE | 2023-07-19 08:01 | MHC.PT.DC ---
[facility] [place] [facility] [place] [facility] [place] [facility] [address] Reza Espinoza [address] [phone] F: [phone] F: [phone] F: [phone] F: [phone] Physical Therapy Discharge Report Diagnosis: pain in L hip Date of Surgery: Date of Evaluation: 06/10/23 Date of Discharge: 07/19/23 Treatments to Date: 10 Cancellations to Date: 0 No Shows to Date: 0 Discharge Status: Achieved Goals Improved Function Independent with HEP Discharge Summary: Pt is appropriate for d/c secondary to meeting all goals, and I with HEP. She is transitioning to [employer] for strengthening and balance classes. Electronically signed by: Michelle Gomez PT Please sign and return to therapist. Thank you for your referral.
== END 2023-07-19 08:01 | disposition home or self-care (01) ==
LOC: HO.PTCHIC 14:00
PROVIDERS: PCP Internal Medicine; Visit Provider Internal Medicine
DX: M25.552 Pain in left hip (principal)
CPT/HCPCS: 97110; 97112; 97140; 97162; 97530

== ENCOUNTER 2023-10-02 13:58 | Outpatient (AMB) | payer MEDICARE, SELFPAY ==
[2023-10-02 14:00] VITALS: BP 140/72; PULSE 86; TEMP 36.7; O2SAT 96; BMI 34.7
--- NOTE | 2023-10-02 14:00 | AM.OFFWIN_ITS ---
Intake Vital Signs 10/02/23 14:00 Height 5 ft 4 in Weight 202 lb BMI 34.7 BP 140/72 H Blood Pressure Location Lt brachial Position Sitting Pulse 86 Pulse Source Pulse Oximeter Temp 98.0 F Temp Source Temporal Artery Scan Pulse Oximetry (%) 96 Oxygen Delivery Method Room Air Intake Visit Reasons: EP Cough (masked) Intake Note: pt is here today for cough started 3 weeks ago Patient Tobacco Use Status: Never used Tobacco Allergies Sulfa (Sulfonamide Antibiotics) Allergy (Unknown, Verified 10/02/23 14:00) Unknown Do you need a note to return to daycare/school/sports/work: No HPI HPI Comments History of Present Illness Details 68 y/o female patient [facility] with c/o cough that started 3 weeks ago. She has tried OTC cough remedies with no much relief. Cough keeps her up at night. Denies fevers, chills, nausea or vomiting. [facility] Medical History (Updated 05/21/23 @ 11:49 by Jacobo Frederick MD) Essential hypertension Family history of diabetes mellitus in first degree relative Impaired fasting glucose Vitamin D deficiency Lumbago without sciatica History of depression Seasonal allergies Osteoarthritis of left knee Atrophic vaginitis History of COVID-19 Urinary, incontinence, stress female Dyslipidemia Acquired hypothyroidism Skin lesion of face Surgical History History of cataract surgery History of right cataract surgery History of carpal tunnel surgery of right wrist H/O tubal ligation Hx of tonsillectomy History of excision of lesion Family History (Updated 11/26/22 @ 14:37 by Nesha Jay MD) Mother Colon cancer Diabetes mellitus Father Diabetes mellitus Social History Housing: House Alcohol intake: never Patient Tobacco Use Status: Never used Tobacco e-Cigarette/Vaping Use: Never Used Current occupational status: employed 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 Cognitive needs: No Hearing needs: No Vision needs: Yes Review of Systems Const All systems reviewed & are unremarkable except as noted in HPI and below Physical Exam Vital Signs: Last Vital Signs Temp 98.0 F 10/02/23 14:00 Pulse 86 10/02/23 14:00 BP 140/72 H 10/02/23 14:00 Pulse Ox 96 10/02/23 14:00 Oxygen Delivery Method Room Air 10/02/23 14:00 BMI result Body Mass Index 34.7 Const General: comfortable and no acute distress Nutritional Appearance: obese Orientation/consciousness: patient oriented x3 HEENT Head: Yes normocephalic Ears: external ears normal and TM's normal bilaterally General nose exam: Normal external nose present and Abnormal mucous membranes and turbinates present boggy and erythematous Face and sinus: Yes sinuses nontender Mouth: moist mucous membranes Throat: Yes posterior oropharynx normal Resp Effort & Inspection: normal respiratory effort, able to speak in complete sentences, no audible wheezes and no cough Auscultation: clear to auscultation bilaterally, no crackles, no rales, no rhonchi and no wheezes Cardio Rate: regular rate Rhythm: regular rhythm Neuro General: patient oriented x3 Assessment & Plan Assessment & Plan (1) Cough in adult: Code(s): R05.9 - Cough, unspecified Plan: - OTC cough remedies - Rest and hydrate with warm fluids and honey -Acetaminophen for pain relief. Medications: New azithromycin 500 mg PO DAILY 3 tabs 0RF 3 days R05.9 - Cough, unspecified Coding Level of Care Code Est Pt Level 3 (34066) Diagnoses Cough in adult R05.9 Time Spent (min) 15
== END 2023-10-02 14:14 | disposition home or self-care (01) ==
PROVIDERS: PCP Internal Medicine; Visit Provider Nurse Practitioner Family
DX: R05.9 Cough, unspecified (principal)
CPT/HCPCS: 99213

== ENCOUNTER 2023-12-03 12:12 | Outpatient (AMB) | payer MEDICARE, SELFPAY ==
[2023-12-03 12:21] VITALS: BP 112/70; PULSE 76; O2SAT 97; BMI 34.5
--- NOTE | 2023-12-03 12:21 | A.OFFPC_ITS ---
Vital Signs 12/03/23 12:21 Height 5 ft 4 in Weight 201 lb BMI 34.5 BP 112/70 Blood Pressure Location Lt brachial Position Sitting Pulse 76 Pulse Source Pulse Oximeter Pulse Oximetry (%) 97 Oxygen Delivery Method Room Air Intake Visit Reasons: PE Intake Note: Pt is here today for her PE: Last mammogram 06/19/23, bone density scan 04/23/23, colonoscopy 10 yrs ago in [place] Allergies Sulfa (Sulfonamide Antibiotics) Allergy (Unknown, Verified 12/03/23 12:34) Unknown Medication List - Last Reconciled 12/03/23 by Nesha Jay MD levothyroxine 125 mcg PO DAILY lisinopril 10 mg PO DAILY Tobacco use date assessed: 12/03/23 Fall risk assessment: No Falls in past year Last assessed Fall Risk: 12/03/23 Dental Screening Dental Screen Date: 12/03/23 Did you have a dental visit in the last 12 months?: Yes Did you have a dental problem in the last 6 months where you did not have access to dental care?: Yes Was dental information given to patient?: Patient has dentist HPI PE HPI Details 68-year-old lady here today for physical exam. She has acquired hypothyroidism currently on levothyroxine 125 mcg taken daily and has hypertension currently stable controlled on lisinopril 10 mg daily. . She has been feeling well, with no complaints at present time. She had a mammogram 06/19/2023 with benign findings, and a bone density scan on 04/23/2023 which showed beginning osteopenia in left femoral neck, normal in left femur and lumbar spine. Has not had any fractures. States that she had a screening colonoscopy 10 yrs ago in [place], with benign findings. She has diabetes mellitus currently diet controlled, with last hemoglobin A1c at 7.4%. Has been trying to control her blood sugar through diet and exercise. No complaints at present time [facility] Medical History (Updated 12/03/23 @ 13:02 by Nesha Jay MD) Diabetes mellitus, without long-term current use of insulin Essential hypertension Family history of diabetes mellitus in first degree relative Vitamin D deficiency Lumbago without sciatica History of depression Seasonal allergies Osteoarthritis of left knee Atrophic vaginitis History of COVID-19 Urinary, incontinence, stress female Dyslipidemia Acquired hypothyroidism Skin lesion of face Surgical History History of cataract surgery History of right cataract surgery History of carpal tunnel surgery of right wrist H/O tubal ligation Hx of tonsillectomy History of excision of lesion Family History Mother Colon cancer Diabetes mellitus Father Diabetes mellitus Social History Housing: House Alcohol intake: never Patient Tobacco Use Status: Never used Tobacco e-Cigarette/Vaping Use: Never Used Current occupational status: employed 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 1. Little interest or pleasure in doing things: not at all 2. Feeling down, depressed, or hopeless: not at all 3. Trouble falling or staying asleep, or sleeping too much: more than half the days 4. Feeling tired or having little energy: not at all 5. Poor appetite or overeating: not at all 6. Feeling bad about yourself - or that you are a failure or have let yourself or your family down: not at all 7. Trouble concentrating on things, such as reading the newspaper or watching television: not at all 8. Moving or speaking so slowly that other people could have noticed. Or the opposite - being so fidgety or restless that you have been moving around a lot more than usual: not at all 9. Thoughts that you would be better off or of hurting yourself in some way: not at all Total score: 2 Depression Screening Interpretation: Negative Depression Screening Done: Yes 49739 - PHQ-9 Billing: Yes Source: Developed by Drs. Alvarado Romano, Eliza Guzman, Raúl Feldman and colleagues, with an educational nabor from [employer]. Thrive Questionnaire Date Thrive assessed: 12/03/23 I am a: Patient What is your living situation today?: I have a steady place to live Within the past 12 months, did the food you bought not last and you didn't have the money to get more?: Never true Within the past 12 months, did you worry whether your food would run out before you got money to buy more?: Never true Do you have trouble paying for medicines?: No Do you have trouble getting transportation to medical appointments?: No Do you have trouble paying your heating and electricity bill?: No Do you have trouble taking care of your child, family member or friend?: No Do you have trouble with day-to-day activities such as bathing, preparing meals, shopping, managing finances, etc.?: No Are you currently unemployed and looking for a job?: No Are you interested in more education?: No THRIVE Score: 0 AUDIT C Alcohol Use Questionnaire (AUDIT-C) 1. How often do you have a drink containing alcohol?: Monthly or less 2. How many drinks containing alcohol do you have on a typical day when you are drinking?: 1 or 2 3. How often do you have six or more drinks on one occasion?: Never Total Score: 1 MARTINE-7 AMB Questionnaire MARTINE-7 Date MARTINE - 7 assessed: 12/03/23 Feeling nervous, anxious, or on edge: 0 = Not at all Not being able to stop or control worryin = Not at all Worrying too much about different things: 0 = Not at all Trouble relaxin = Not at all Being so restless that it is hard to sit still: 0 = Not at all Becoming easily annoyed or irritable: 0 = Not at all Feeling afraid as if something awful might happen: 0 = Not at all Total MARTINE-7 score (0-4 normal; 5-9 mild; 10-14 moderate; 15-21 severe): 0 Source: Developed by Drs. Alvarado Romano, Eliza Guzman, Raúl Feldman and colleagues, with an educational nabor from [employer]. MARTINE-7 Assessment Billing MARTINE-7 Assessment Tool: MARTINE-7 Assessment 84999 Review of Systems Const Denies body aches, Denies fatigue, Denies fever(s), Denies headache(s) and Denies weakness Eyes Details: Yearly with Dr. Paez Denies change in vision ENT Denies dizziness, Denies headache(s), Denies nasal congestion, Denies nasal discharge and Denies sore throat Card Denies chest pain, Denies lightheadedness, Denies palpitations and Denies dyspnea Resp Denies chest congestion, Denies cough, Denies dyspnea and Denies wheezing GI Denies abdominal pain, Denies change in bowel habits and Denies heartburn Denies hematuria, Denies urinary frequency, Denies dysuria and Denies urinary urgency Musc Reports as per HPI Skin/Breast Denies breast pain, Denies breast mass, Denies lesions and Denies rash Neuro Denies dizziness, Denies headache(s) and Denies weakness Psych Reports no additional complaints Endo Denies fatigue, Denies polydipsia, Denies polyuria and Denies palpitations Brian/Lymph Denies easy bleeding and Denies easy bruising Aller/Immun Denies seasonal rhinorrhea and Denies wheezing Physical exam (Primary Care) Vital Signs: Last Vital Signs Pulse 76 12/03/23 12:21 BP 112/70 12/03/23 12:21 Pulse Ox 97 12/03/23 12:21 Oxygen Delivery Method Room Air 12/03/23 12:21 BMI result Body Mass Index 34.5 BMI Assessment/Plan discussion: High BMI High, discussed plan: lifestyle, weight reduction, dietary and physical activity Tobacco/Smoking Status: Tobacco use Status Tobacco use date assessed 12/03/23 12/03/23 12:30 Patient Tobacco Use Status Never used Tobacco 12/03/23 12:25 e-Cigarette/Vaping Use Never Used 12/03/23 12:25 PHQ-9: PHQ-9 Score PHQ-9: Total score 2 12/03/23 13:12 Depression Screening Interpretation: Negative Thrive Assessment: Date of Thrive Assessment Date Thrive assessed 12/03/23 12/03/23 13:12 Const Other: Alert oriented x3, no acute distress noted, ambulatory with normal gait General: comfortable, no acute distress, alert and Physically active Nutritional Appearance: obese Orientation/consciousness: patient oriented x3 HENWI Head: Yes normocephalic Ears: hearing grossly normal bilaterally, external ears normal, TM's normal bilaterally and EAC's normal General nose exam: Normal external nose present Face and sinus: Yes sinuses nontender and Yes face symmetric Mouth: Normal oral and palatal mucosa present, oropharynx normal and moist mucous membranes Eyes General: appearance normal, both eyes and all related structures Neck Neck: Yes full ROM, Yes no lymphadenopathy and Yes supple Thyroid: Thyroid normal Chest Chest palpation & inspection: normal inspection of the chest and normal palpation of entire chest wall Breast/axilla inspection: normal inspection of the breasts and Other (Nipple piercing) Breast/axilla palpation: normal palpation of the breasts Resp Effort & Inspection: normal respiratory effort and able to speak in complete sentences Auscultation: clear to auscultation bilaterally Cardio Rate: regular rate Rhythm: regular rhythm Heart sounds: S1 normal heart sound present and S2 normal heart sound present GI Inspection: Yes obesity and Yes other (Pierced navel) Palpation (GI): Soft to palpation, nontender, no guarding and no masses Auscultation: normal bowel sounds General: Yes no CVA tenderness and Yes deferred Back/Spine/Pelvis Back: no CVA tenderness and No back tenderness Thoracic/Lumbar Spine: thoracic and lumbar spine normal to inspection Skin Other: Piercing in both nipple and navel, scattered hyperpigmented raised patches on upper abdomen Neuro General: patient oriented x3, gait normal, tone normal, moves all extremities, Normal light touch and pain sensation, no focal motor deficits, CN's II-XI intact bilaterally and normal sensation to monofilament Cognition (Neuro): normal cognition Gait exam (Neuro): Normal gait present Extrem Other: Crepitus noted both knees General: Yes full ROM, Yes no joint enlargement, Yes no clubbing, cyanosis or edema and Yes no calf tenderness Psych Appearance: grossly normal and well kempt Mental Status: mental status grossly normal Speech and movement: Normal speech and movement present Affect: normal affect Attitude: cooperative Thought process: Normal thought process present Thought content: Normal thought content present Assessment and Plan Assessment & Plan (1) Acquired hypothyroidism: Code(s): E03.9 - Hypothyroidism, unspecified (2) Dyslipidemia: Code(s): E78.5 - Hyperlipidemia, unspecified (3) Impaired fasting glucose: Code(s): R73.01 - Impaired fasting glucose (4) Essential hypertension: Code(s): I10 - Essential (primary) hypertension (5) Annual visit for general adult medical examination with abnormal findings: Code(s): Z00.01 - Encounter for general adult medical examination with abnormal findings Plan: Will check appropriate labs. Continue with regular dental visit every 6 months and regular eye exams, at least every 2 years, currently up-to-date. Take adequate calcium in diet and vitamin-D 3 at 2000 IU per cap once a day, in addition to weight-bearing exercises to help maintain good muscle tone and weight control. Instructed to do self-breast exam, and continue with yearly mammogram, currently up-to-date.. She has had COVID vaccination but does not want to get the booster, up-to-date with her flu vaccine yearly, and pneumonia vaccinations, reminded to get her shingles vaccine. Referred for screening colonoscopy to [facility] (6) Encounter for screening for malignant neoplasm of colon: Code(s): Z12.11 - Encounter for screening for malignant neoplasm of colon Plan: Referred to gastroenterology clinic in [place] (7) Screening for Malignant Neoplasm of Skin: Code(s): Z12.83 - Encounter for screening for malignant neoplasm of skin Plan: Referred to [facility], where she was seen in the past for skin check (8) Vitamin D deficiency: Code(s): E55.9 - Vitamin D deficiency, unspecified Plan: Vitamin-D level ordered (9) Diabetes mellitus, without long-term current use of insulin: Code(s): E11.9 - Type 2 diabetes mellitus without complications Plan: Ordered another hemoglobin A1c, basic metabolic panel, reinforced importance of following healthy diet, and getting regular exercise at least 30 minutes daily. If hemoglobin A1c still above 6.5%, will start medication for treatment of diabetes mellitus Orders: Orders Alanine Aminotransferase 12/07/23 E03.9 - Hypothyroidism, unspecified, E78.5 - Hyperlipidemia, unspecified, I10 - Essential (primary) hypertension, R73.01 - Impaired fasting glucose, Z00.01 - Encounter for general adult medical examination with abnormal findings Basic Metabolic Panel Fasting 12/07/23 E03.9 - Hypothyroidism, unspecified, E78.5 - Hyperlipidemia, unspecified, I10 - Essential (primary) hypertension, R73.01 - Impaired fasting glucose, Z00.01 - Encounter for general adult medical examination with abnormal findings Lipid Panel 12/07/23 E03.9 - Hypothyroidism, unspecified, E78.5 - Hyperlipidemia, unspecified, I10 - Essential (primary) hypertension, R73.01 - Impaired fasting glucose, Z00.01 - Encounter for general adult medical examination with abnormal findings Thyroid Stimulating Hormone 12/07/23 E03.9 - Hypothyroidism, unspecified, E78.5 - Hyperlipidemia, unspecified, I10 - Essential (primary) hypertension, R73.01 - Impaired fasting glucose, Z00.01 - Encounter for general adult medical examination with abnormal findings Free T4 (Free Thyroxine) 12/07/23 E03.9 - Hypothyroidism, unspecified, E78.5 - Hyperlipidemia, unspecified, I10 - Essential (primary) hypertension, R73.01 - Impaired fasting glucose, Z00.01 - Encounter for general adult medical examination with abnormal findings Vitamin D 25-OH Total 12/07/23 E03.9 - Hypothyroidism, unspecified, E78.5 - Hyperlipidemia, unspecified, I10 - Essential (primary) hypertension, R73.01 - Impaired fasting glucose, Z00.01 - Encounter for general adult medical examination with abnormal findings Aspartate Amino Transferase 12/07/23 E03.9 - Hypothyroidism, unspecified, E78.5 - Hyperlipidemia, unspecified, I10 - Essential (primary) hypertension, R73.01 - Impaired fasting glucose, Z00.01 - Encounter for general adult medical examination with abnormal findings Hemoglobin A1c 12/07/23 E03.9 - Hypothyroidism, unspecified, E78.5 - Hyperlipidemia, unspecified, I10 - Essential (primary) hypertension, R73.01 - Impaired fasting glucose, Z00.01 - Encounter for general adult medical examination with abnormal findings Microalbumin, Random (w Creat) 12/07/23 E03.9 - Hypothyroidism, unspecified, E78.5 - Hyperlipidemia, unspecified, I10 - Essential (primary) hypertension, R73.01 - Impaired fasting glucose, Z00.01 - Encounter for general adult medical examination with abnormal findings Referrals Dermatology Referral Z12.83 - Encounter for screening for malignant neoplasm of skin Gastroenterology Referral Z12.11 - Encounter for screening for malignant neoplasm of colon Coding Level of Care Code Est Pt Prev Care >65y(66689) Diagnoses Acquired hypothyroidism E03.9 Dyslipidemia E78.5 Impaired fasting glucose R73.01 Essential hypertension I10 Annual visit for general adult medical examination with abnormal findings Z00.01 Encounter for screening for malignant neoplasm of colon Z12.11 Screening for Malignant Neoplasm of Skin Z12.83 Vitamin D deficiency E55.9 Diabetes mellitus, without long-term current use of insulin E11.9 Additional Codes MARTINE-7 Assessment Billing - MARTINE-7 Assessment Tool: MARTINE-7 Assessment 99374 ([id number])
== END 2023-12-03 13:04 | disposition home or self-care (01) ==
PROVIDERS: Visit Provider Internal Medicine
DX: Z00.00 Encounter for general adult medical examination without abnormal findings (principal); E03.9 Hypothyroidism, unspecified; E11.69 Type 2 diabetes mellitus with other specified complication; E78.5 Hyperlipidemia, unspecified; R73.01 Impaired fasting glucose; I10 Essential (primary) hypertension; Z12.11 Encounter for screening for malignant neoplasm of colon; Z12.83 Encounter for screening for malignant neoplasm of skin; E55.9 Vitamin D deficiency, unspecified
CPT/HCPCS: 99397

== ENCOUNTER 2023-12-07 09:20 | Outpatient (REF) | payer MEDICARE, SELFPAY ==
[2023-12-07 11:34] LABS: Estimated Average Glucose 180 mg/dL; Hemoglobin A1c % 7.9 % (<6.0)
[2023-12-07 12:03] LABS: Creatinine Urine 199.31 mg/dL
[2023-12-07 12:16] LABS: Alanine Aminotransferase 49 U/L (0-31); Anion Gap 15 (12-20); Aspartate Amino Transferase 44 U/L (5-31); Blood Urea Nitrogen 11 mg/dL (9-16); Calcium 9.7 mg/dL (8.4-10.2); Carbon Dioxide 24 mmol/L (22-29); Chloride 104 mmol/L (96-108); Cholesterol 188 mg/dL (<200); Estimated Glomerular Filt Rate > 60; Glucose Fasting 172 mg/dL (60-99); HDL Cholesterol 38 mg/dL (>40); LDL Cholesterol Calculated 110 mg/dL (<100); Potassium 4.3 mmol/L (3.3-5.1); Sodium 139 mmol/L (135-145); Thyroid Stimulating Hormone 1.54 uIU/mL (0.32-4.0); Triglycerides 204 mg/dL (<150); Vitamin D 25-OH Total 48.3 ng/mL (>30)
== END 2023-12-07 09:21 | disposition home or self-care (01) ==
LOC: HO.HMGCLDS 09:20
PROVIDERS: PCP Internal Medicine; Visit Provider Internal Medicine
DX: Z00.01 Encounter for general adult medical examination with abnormal findings (principal); I10 Essential (primary) hypertension; R73.01 Impaired fasting glucose; E78.5 Hyperlipidemia, unspecified; E03.9 Hypothyroidism, unspecified
CPT/HCPCS: 36415; 80048; 80061; 82043; 82306; 82570; 83036; 84439; 84443; 84450; 84460

== ENCOUNTER 2024-02-10 13:12 | Outpatient (AMB) | payer MEDICARE, SELFPAY ==
--- NOTE | 2024-02-10 13:29 | A.OFFVIS_ITS ---
Vital Signs 02/10/24 13:30 Height 5 ft 4 in Weight 196 lb 10.437 oz BMI 33.8 BP 134/70 Blood Pressure Location Rt brachial Position Sitting Pulse 78 Pulse Source Pulse Oximeter Pulse Oximetry (%) 96 Oxygen Delivery Method Room Air Intake Visit Reasons: Family Hx Colon Cancer Intake Note: Faiza presents in office today for a scheduled colo s.p scrn CC: Pt reports having previous hx of colo s/p. Pt states that their last colo was approximately 10 years ago in the state of [place]. Pt reports family hx of colo cancer. Pt denies any current sx or other significant concerns. Director Of Quality Required: No Allergies Sulfa (Sulfonamide Antibiotics) Allergy (Unknown, Verified 02/10/24 13:29) Unknown HPI HPI Family Hx Colon Cancer: Details: 68 year old? female here today for pre colonoscopy screening.? Patient was sent to us by her PCP.? Patient's last colonoscopy was over 10 years ago in [place]. Patient reports that that was normal colonoscopy. Patient reports that her grandmother had colon cancer.? Patient denies any gastrointestinal symptoms in the past or at present.?? Denies history of difficulty with sedation or anesthesia in the past.? Negative for history of sleep apnea.? Denies any history of cardiac, renal, pulmonary, or hepatic disease.?? Mildly elevated liver enzymes since 2022. No history of infectious? diseases like hepatitis A, B, C, HIV or tuberculosis.? Patient is not on any anticoagulation [facility] Medical History Diabetes mellitus, without long-term current use of insulin Essential hypertension Family history of diabetes mellitus in first degree relative Vitamin D deficiency Lumbago without sciatica History of depression Seasonal allergies Osteoarthritis of left knee Atrophic vaginitis History of COVID-19 Urinary, incontinence, stress female Dyslipidemia Acquired hypothyroidism Skin lesion of face Surgical History History of cataract surgery History of right cataract surgery History of carpal tunnel surgery of right wrist H/O tubal ligation Hx of tonsillectomy History of excision of lesion Family History Mother Colon cancer Diabetes mellitus Father Diabetes mellitus Social History (Reviewed 02/10/24 @ 13:29 by Juan Faith [facility] Housing: House Alcohol intake: never Patient Tobacco Use Status: Never used Tobacco e-Cigarette/Vaping Use: Never Used Current occupational status: employed 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 Cognitive needs: No Hearing needs: No Vision needs: Yes Review of Systems Const Denies weight gain and Denies weight loss ENT Reports no additional complaints, Denies dysphagia and Denies odynophagia Card Reports no additional complaints Resp Reports no additional complaints GI Denies abdominal pain, Denies belching, Denies melena, Denies bloating, Denies change in bowel habits, Denies dysphagia, Denies excessive flatus, Denies dyspepsia, Denies heartburn, Denies diarrhea, Denies loose stools, Denies nausea, Denies odynophagia and Denies vomiting Musc Reports no additional complaints Neuro Reports no additional complaints Psych Reports no additional complaints Endo Reports no additional complaints Physical Exam Vital Signs: Last Vital Signs Pulse 78 02/10/24 13:30 BP 134/70 02/10/24 13:30 Pulse Ox 96 02/10/24 13:30 Oxygen Delivery Method Room Air 02/10/24 13:30 BMI result Body Mass Index 33.8 Const General: healthy appearing and no acute distress Nutritional Appearance: obese Orientation/consciousness: patient oriented x3 Resp Effort & Inspection: normal respiratory effort, able to speak in complete sentences, no tracheal deviation and symmetric chest movement Auscultation: clear to auscultation bilaterally Cardio Rate: regular rate GI Inspection: Yes normal to inspection, No distended and Yes obesity Palpation (GI): Soft to palpation, not firm, nontender and No hepatosplenomegaly present Auscultation: normal bowel sounds General: Yes no CVA tenderness Back/Spine/Pelvis Back: no CVA tenderness Skin General skin exam: elasticity normal, turgor normal and dry skin Neuro General: patient oriented x3 Psych Appearance: grossly normal Mental Status: mental status grossly normal Assessment & Plan Assessment & Plan (1) Encounter for screening for malignant neoplasm of colon: Code(s): Z12.11 - Encounter for screening for malignant neoplasm of colon (2) Transaminitis: Code(s): R74.01 - Elevation of levels of liver transaminase levels Plan Patient denies any GI, cardiac or respiratory symptoms.? Denies any issues with anesthesia in the past.? Denies any history of sleep apnea.? No history infectious diseases in the past or present.? Not on any anticoagulation therapy.? Patient's grandmother was diagnosed with CRC. Elevated liver enzymes since 2022. Most likely hepatic steatosis, will repeat levels next visit. Patient denies melena, hematochezia, unintentional weight loss or ribbon like stools.? Discussed at length the pre-procedure,? prep, diet & medications as well as what to expect prior, during and after the procedure.?? Stressed the importance of good bowel prep.? Recommended the use of Vaseline or Calmoseptine OTC & baby wipes with bowel movements to promote comfort.? ?Patient verbalizes understanding and agrees to plan of care.? She was given the opportunity to ask questions and all questions answered.? We will see her after the procedure.? Medications: New bisacodyl (Dulcolax (bisacodyl)) take 4 tabs at noon the day before your colonoscopy 20 mg (4 x 5 mg) PO ONCE 1 day 4 tabs 0RF Z12.11 - Encounter for screening for malignant neoplasm of colon polyethylene glycol 3350 (Miralax) As directed by gastroenterology department at [facility] 238 grams PO ONCE 238 grams 0RF Z12.11 - Encounter for screening for malignant neoplasm of colon Coding Level of Care Code New Pt Level 3 (56136) Diagnoses Encounter for screening for malignant neoplasm of colon Z12.11 Transaminitis R74.01 Time Spent (min) 40 Comment 30 minutes spent with patient and additional 10 minutes spent reviewing her records
[2024-02-10 13:30] VITALS: BP 134/70; PULSE 78; O2SAT 96; BMI 33.8
== END 2024-02-10 14:47 | disposition home or self-care (01) ==
PROVIDERS: PCP Internal Medicine; Visit Provider Nurse Practitioner Family
DX: Z01.818 Encounter for other preprocedural examination (principal); Z12.11 Encounter for screening for malignant neoplasm of colon; R74.01 Elevation of levels of liver transaminase levels
CPT/HCPCS: 99024

== ENCOUNTER → 2024-02-10 13:12 | Outpatient (BNVA) | payer MEDICARE, SELFPAY | PROVIDERS: PCP Internal Medicine; Visit Provider Nurse Practitioner Family | DX: Z12.11 Encounter for screening for malignant neoplasm of colon (principal); R74.01 Elevation of levels of liver transaminase levels | CPT/HCPCS: 99212 ==

== ENCOUNTER 2024-04-07 08:04 | Outpatient (REF) | payer MEDICARE, SELFPAY ==
[2024-04-07 10:53] LABS: Microalbum/Creatinine Ratio Ur 16.1 ug/mg cr (<30)
[2024-04-07 10:55] LABS: Estimated Average Glucose 134 mg/dL; Hemoglobin A1c % 6.3 % (<6.0); Total Hemoglobin (HGBA1C) 3407.4814 umol/L
[2024-04-07 11:17] LABS: Alanine Aminotransferase 19 U/L (0-31); Anion Gap 10 (12-20); Aspartate Amino Transferase 21 U/L (5-31); Blood Urea Nitrogen 14 mg/dL (9-16); Calcium 9.7 mg/dL (8.4-10.2); Carbon Dioxide 29 mmol/L (22-29); Chloride 106 mmol/L (96-108); Cholesterol 137 mg/dL (<200); Estimated Glomerular Filt Rate > 60; Glucose Fasting 136 mg/dL (60-99); HDL Cholesterol 38 mg/dL (>40); LDL Cholesterol Calculated 69 mg/dL (<100); Potassium 4.4 mmol/L (3.3-5.1); Sodium 141 mmol/L (135-145); Triglycerides 151 mg/dL (<150)
[2024-04-07 11:20] LABS: Free T4 (Free Thyroxine) 0.88 ng/dL (0.71-1.85); Thyroid Stimulating Hormone 0.68 uIU/mL (0.32-4.0); Vitamin D 25-OH Total 58.5 ng/mL (>30)
== END 2024-04-07 08:05 | disposition home or self-care (01) ==
LOC: HO.HMGCLDS 08:04
PROVIDERS: PCP Internal Medicine; Visit Provider Internal Medicine
DX: E11.9 Type 2 diabetes mellitus without complications (principal); E55.9 Vitamin D deficiency, unspecified; I10 Essential (primary) hypertension; E78.5 Hyperlipidemia, unspecified; E03.9 Hypothyroidism, unspecified
CPT/HCPCS: 36415; 80048; 80061; 82043; 82306; 82570; 83036; 84439; 84443; 84450; 84460

== ENCOUNTER 2024-04-14 08:00 | Outpatient (AMB) | payer MEDICARE, SELFPAY ==
[2024-04-14 08:05] VITALS: BP 128/80; PULSE 77; O2SAT 97; BMI 33.3
--- NOTE | 2024-04-14 08:05 | MHC.PC.OV ---
Vital Signs 04/14/24 08:05 Height 5 ft 4 in Weight 194 lb BMI 33.3 BP 128/80 Blood Pressure Location Lt brachial Position Sitting Pulse 77 Pulse Source Pulse Oximeter Pulse Oximetry (%) 97 Oxygen Delivery Method Room Air Intake Visit Reasons: f/u labs and HTN Intake Note: Pt is here today for her f/u labs & HTN Allergies Sulfa (Sulfonamide Antibiotics) Allergy (Unknown, Verified 04/14/24 08:06) Unknown Medication List - Last Reconciled 04/14/24 by Nesha Jay MD bisacodyl (Dulcolax (bisacodyl)) 20 mg (4 x 5 mg) PO ONCE 1 day cholecalciferol (vitamin D3) 50 mcg PO DAILY levothyroxine 125 mcg PO DAILY lisinopril 10 mg PO DAILY metformin ER 500 mg PO QPM polyethylene glycol 3350 (Miralax) 238 grams PO ONCE rosuvastatin 5 mg PO Q2D 3 months NS Tobacco use date assessed: 04/14/24 Fall risk assessment: No Falls in past year Last assessed Fall Risk: 04/14/24 Dental Screening Dental Screen Date: 04/14/24 Did you have a dental visit in the last 12 months?: Yes Did you have a dental problem in the last 6 months where you did not have access to dental care?: Yes Was dental information given to patient?: Patient has dentist HPI f/u labs and HTN HPI Details 68-year-old lady with hypertension and hypothyroidism and hyperlipidemia, here today for follow-up. She has seen the network lead and has changed her diet, but admits to not getting much exercise due to have schedule work Has been compliant with takin her medications. Recent fasting labs showed lipids, hemoglobin A1c, vitamin-D, liver enzymes electrolytes and renal function are all within normal limits. She is up-to-date with her eye exam for diabetes, goes to Dr. Paez. And states that she has an appointment already for her mammogram and colonoscopy scheduled. [facility] Medical History (Updated 04/14/24 @ 08:36 by Nesha Jay MD) Diabetes mellitus, without long-term current use of insulin Essential hypertension Family history of diabetes mellitus in first degree relative Vitamin D deficiency Lumbago without sciatica History of depression Seasonal allergies Osteoarthritis of left knee Atrophic vaginitis History of COVID-19 Urinary, incontinence, stress female Dyslipidemia Acquired hypothyroidism Skin lesion of face Surgical History History of cataract surgery History of right cataract surgery History of carpal tunnel surgery of right wrist H/O tubal ligation Hx of tonsillectomy History of excision of lesion Family History Mother Colon cancer Diabetes mellitus Father Diabetes mellitus Social History Housing: House Alcohol intake: never Patient Tobacco Use Status: Never used Tobacco e-Cigarette/Vaping Use: Never Used Current occupational status: employed 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 1. Little interest or pleasure in doing things: not at all 2. Feeling down, depressed, or hopeless: not at all 3. Trouble falling or staying asleep, or sleeping too much: not at all 4. Feeling tired or having little energy: not at all 5. Poor appetite or overeating: not at all 6. Feeling bad about yourself - or that you are a failure or have let yourself or your family down: not at all 7. Trouble concentrating on things, such as reading the newspaper or watching television: not at all 8. Moving or speaking so slowly that other people could have noticed. Or the opposite - being so fidgety or restless that you have been moving around a lot more than usual: not at all 9. Thoughts that you would be better off or of hurting yourself in some way: not at all Total score: 0 Depression Screening Interpretation: Negative Depression Screening Done: Yes 80585 - PHQ-9 Billing: Yes Source: Developed by Drs. Alvarado Romano, Eliza Guzman, Raúl Feldman and colleagues, with an educational nabor from [employer]. Thrive Questionnaire Date Thrive assessed: 04/14/24 I am a: Patient What is your living situation today?: I have a steady place to live Within the past 12 months, did the food you bought not last and you didn't have the money to get more?: Never true Within the past 12 months, did you worry whether your food would run out before you got money to buy more?: Never true Do you have trouble paying for medicines?: No Do you have trouble getting transportation to medical appointments?: No Do you have trouble paying your heating and electricity bill?: No Do you have trouble taking care of your child, family member or friend?: No Do you have trouble with day-to-day activities such as bathing, preparing meals, shopping, managing finances, etc.?: No Are you interested in more education?: No Please select the resources that you would like help with: None Currently or been in a relationship where the following occur: No concerns reported THRIVE Score: 0 AUDIT C Alcohol Use Questionnaire (AUDIT-C) 2. How many drinks containing alcohol do you have on a typical day when you are drinking?: 1 or 2 Total Score: 0 MARTINE-7 AMB Questionnaire MARTINE-7 Date MARTINE - 7 assessed: 04/14/24 Feeling nervous, anxious, or on edge: 0 = Not at all Not being able to stop or control worryin = Not at all Worrying too much about different things: 0 = Not at all Trouble relaxin = Not at all Being so restless that it is hard to sit still: 0 = Not at all Becoming easily annoyed or irritable: 0 = Not at all Feeling afraid as if something awful might happen: 0 = Not at all Total MARTINE-7 score (0-4 normal; 5-9 mild; 10-14 moderate; 15-21 severe): 0 Source: Developed by Drs. Alvarado Romano, Eliza Guzman, Raúl Feldman and colleagues, with an educational nabor from [employer]. MARTINE-7 Assessment Billing MARTINE-7 Assessment Tool: MARTINE-7 Assessment 31261 Review of Systems Const Reports no additional complaints and Reports weight loss Eyes Details: Sees Dr. Paez Reports no additional complaints ENT Reports no additional complaints Card Reports no additional complaints Resp Reports no additional complaints GI Denies abdominal pain, Denies melena, Denies bloating, Denies change in bowel habits, Denies heartburn and Denies nausea Musc Reports no additional complaints Neuro Reports no additional complaints Psych Reports no additional complaints Endo Reports no additional complaints Brian/Lymph Reports no additional complaints Aller/Immun Reports no additional complaints Physical exam (Primary Care) Vital Signs: Last Vital Signs Pulse 77 04/14/24 08:05 BP 128/80 04/14/24 08:05 Pulse Ox 97 04/14/24 08:05 Oxygen Delivery Method Room Air 04/14/24 08:05 BMI result Body Mass Index 33.3 BMI Assessment/Plan discussion: High BMI High, discussed plan: lifestyle, weight reduction, dietary and physical activity Tobacco/Smoking Status: Tobacco use Status Tobacco use date assessed 04/14/24 04/14/24 08:09 Patient Tobacco Use Status Never used Tobacco 04/14/24 08:09 e-Cigarette/Vaping Use Never Used 04/14/24 08:09 PHQ-9: PHQ-9 Score PHQ-9: Total score 0 04/14/24 08:09 Depression Screening Interpretation: Negative Thrive Assessment: Date of Thrive Assessment Date Thrive assessed 04/14/24 04/14/24 08:09 Currently or been in a relationship where the following occur: No concerns reported Const Other: Alert oriented x3, no acute distress noted, ambulatory with normal gait General: no acute distress, alert and Physically active Nutritional Appearance: obese Orientation/consciousness: patient oriented x3 HENMT Head: Yes normocephalic Ears: external ears normal General nose exam: Normal external nose present Face and sinus: Yes face symmetric Mouth: moist mucous membranes Eyes General: appearance normal, both eyes and all related structures Neck Neck: Yes full ROM, Yes no lymphadenopathy and Yes supple Thyroid: Thyroid normal Resp Effort & Inspection: normal respiratory effort and able to speak in complete sentences Auscultation: clear to auscultation bilaterally Cardio Rate: regular rate Rhythm: regular rhythm Heart sounds: S1 normal heart sound present and S2 normal heart sound present GI Inspection: Yes obesity and Yes other (Pierced navel) Palpation (GI): Soft to palpation, nontender, no guarding and no masses Auscultation: normal bowel sounds Neuro General: patient oriented x3, gait normal, tone normal, moves all extremities, Normal light touch and pain sensation, no focal motor deficits, CN's II-XI intact bilaterally and normal sensation to monofilament Cognition (Neuro): normal cognition Gait exam (Neuro): Normal gait present Extrem General: Yes full ROM, Yes no joint enlargement, Yes no clubbing, cyanosis or edema and Yes no calf tenderness Psych Appearance: grossly normal and well kempt Mental Status: mental status grossly normal Speech and movement: Normal speech and movement present Affect: normal affect Attitude: cooperative Thought process: Normal thought process present Thought content: Normal thought content present Results Reviewed Results Reviewed: Laboratory Tests 04/07/24 04/07/24 08:40 08:45 Estimat Average Glucose 134 Hemoglobin A1c % 6.3 H Urine Creatinine 129.90 Urine Microalbumin 21.0 Microalb/Creat Ratio 16.1 Name: Faiza Centeno Age/Sex: 68/F : 1955 Unit#: [id number] Attend Dr: Nesha Jay MD Re04/07/24 Status: DEP REF Location: [facility] Disch: SPEC : [id number] TRICIA: 04/07/24 STATUS: COMP REQ : [id number] RECD: 04/07/24-[address]: Nesha Jay MD COMP: 04/07/24 ENTERED: 04/07/24-[address] [facility] [address]: ORDERED: Met Prof Fast, AST, ALT, Lipid Panel, Vitamin D 25-OH, Free T4, TSH Test Result Flag Reference Sodium 141 135-145 mmol/L Potassium 4.4 3.3-5.1 mmol/L CL 106 96-108 mmol/L CO2 29 22-29 mmol/L Gap 10 L 12-20 BUN 14 9-16 mg/dL Creat 0.76 0.5-1.4 mg/dL EGFR > 60 NOTE: For -[place] individuals, multiply the result by 1.210. Chronic Kidney Disease: Estimated GFR < 60 mL/min/1.73m2 Severe Kidney Disease: Estimated GFR < 15 mL/min/1.73m2 FBS 136 H 60-99 mg/dL A fasting glucose of 126 mg/dl or greater on more than one occasion is considered diagnostic of diabetes. CA 9.7 8.4-10.2 mg/dL AST (GOT) 21 5-31 U/L ALT (GPT) 19 0-31 U/L Triglyceride 151 H <150 mg/dL Desirable Triglyceride: less than 150 mg/dL Borderline High Triglyceride 150-199 mg/dL High Triglyceride: 200-499 mg/dL Very High Triglyceride: greater than or equal to 5OO mg/dL Cholesterol 137 <200 mg/dL Desirable Cholesterol: less than 200 mg/dL Borderline High Cholesterol: 200-239 mg/dL High Cholesterol: greater than 239 mg/dL LDL Calculated 69 <100 mg/dL Desirable LDL: less than 100 mg/dL Near Optimal/Above Optimal LDL: 110-129 mg/dL Borderline High LDL: 130-159 mg/dL High LDL: 160-189 mg/dL Very High LDL: greater than or equal to 190 mg/dL HDL 38 L >40 mg/dL Desirable HDL: greater than 40 mg/dL Note: This HDL assay may give artificially low results in patients with liver disease. Vit D 25-OH Tot 58.5 >30 ng/mL Health Based Reference Values* < 20 ng/mL Deficient 20-30 ng/mL Insufficient > 30 ng/mL Sufficient *Lyn HUNG. N Engl J Med. 2007;[id number]:266-280 Care must be taken in interpreting Vitamin D results from different laboratories and methodologies. Published data demonstrated that results from patients undergoing hemodialysis may show a negative bias when tested with various automated 25-OH vitamin D assays when compared to LC-MS/MS. When testing samples from patients whose predominant form of Vitamin D is Vitamin D2, such as patients receiving Vitamin D2 supplementation, results that are subtherapeutic should be confirmed with another method such as LC-MS/MS. Free T4 0.88 0.71-1.85 ng/dL TSH 3rd Gen. 0.68 0.32-4.0 uIU/mL TSH 3rd Generation ([facility]) Assessment and Plan Assessment & Plan (1) Acquired hypothyroidism: Code(s): E03.9 - Hypothyroidism, unspecified Plan: Thyroid levels are within normal limits, continue with current dose of levothyroxine 125 mcg once a day in a.m., recheck levels again next visit (2) Dyslipidemia: Code(s): E78.5 - Hyperlipidemia, unspecified Plan: Improvement noted in her lipid levels especially in her LDL cholesterol as compared to last check. Will continue on rosuvastatin 5 mg taken every other day, continue with healthy eating habits and start exercising regularly to raise good cholesterol level (3) Essential hypertension: Code(s): I10 - Essential (primary) hypertension Plan: Blood pressure at goal of less than 130/80. Continue lisinopril 10 mg daily. Reinforced importance of following a low sodium diet, getting regular exercise, and lowering stress levels. (4) Diabetes mellitus, without long-term current use of insulin: Code(s): E11.9 - Type 2 diabetes mellitus without complications Plan: Recent lab results reviewed with patient, with sugar and hemoglobin A1c stable and at goal . Continue metformin ER 500 mg at night with supper. continue to check fasting blood sugar at home, maintain log and bring to next appointment for review. Reinforced diabetic diet and regular exercise with patient. Counseled regarding importance of yearly diabetes retinopathy screening. Patient advised to inspect feet daily, for any signs of injury, callus or infection. Compliance with diet and regular exercise again stressed. Blood pressure goal is less than 130/80, goal LDL is less than 100 and goal hemoglobin A1c is less than 7% Orders: Orders Lipid Panel 11/19/24 E03.9 - Hypothyroidism, unspecified, E11.9 - Type 2 diabetes mellitus without complications, E78.5 - Hyperlipidemia, unspecified, I10 - Essential (primary) hypertension Microalbumin, Random (w Creat) 11/19/24 E03.9 - Hypothyroidism, unspecified, E11.9 - Type 2 diabetes mellitus without complications, E78.5 - Hyperlipidemia, unspecified, I10 - Essential (primary) hypertension Alanine Aminotransferase 11/19/24 E03.9 - Hypothyroidism, unspecified, E11.9 - Type 2 diabetes mellitus without complications, E78.5 - Hyperlipidemia, unspecified, I10 - Essential (primary) hypertension Aspartate Amino Transferase 11/19/24 E03.9 - Hypothyroidism, unspecified, E11.9 - Type 2 diabetes mellitus without complications, E78.5 - Hyperlipidemia, unspecified, I10 - Essential (primary) hypertension Basic Metabolic Panel Fasting 11/19/24 E03.9 - Hypothyroidism, unspecified, E11.9 - Type 2 diabetes mellitus without complications, E78.5 - Hyperlipidemia, unspecified, I10 - Essential (primary) hypertension Vitamin D 25-OH Total 11/19/24 E03.9 - Hypothyroidism, unspecified, E11.9 - Type 2 diabetes mellitus without complications, E78.5 - Hyperlipidemia, unspecified, I10 - Essential (primary) hypertension Thyroid Stimulating Hormone 11/19/24 E03.9 - Hypothyroidism, unspecified, E11.9 - Type 2 diabetes mellitus without complications, E78.5 - Hyperlipidemia, unspecified, I10 - Essential (primary) hypertension Free T4 (Free Thyroxine) 11/19/24 E03.9 - Hypothyroidism, unspecified, E11.9 - Type 2 diabetes mellitus without complications, E78.5 - Hyperlipidemia, unspecified, I10 - Essential (primary) hypertension Hemoglobin A1c 11/19/24 E03.9 - Hypothyroidism, unspecified, E11.9 - Type 2 diabetes mellitus without complications, E78.5 - Hyperlipidemia, unspecified, I10 - Essential (primary) hypertension Coding Level of Care Code Est Pt Level 4 (72323) Complex EM visit Add On G2211 Diagnoses Acquired hypothyroidism E03.9 Dyslipidemia E78.5 Essential hypertension I10 Diabetes mellitus, without long-term current use of insulin E11.9 Additional Codes MARTINE-7 Assessment Billing - MARTINE-7 Assessment Tool: MARTINE-7 Assessment 73063 ([id number])
== END 2024-04-14 09:58 | disposition home or self-care (01) ==
PROVIDERS: PCP Internal Medicine; Visit Provider Internal Medicine
DX: E03.9 Hypothyroidism, unspecified (principal); E78.5 Hyperlipidemia, unspecified; I10 Essential (primary) hypertension; E11.9 Type 2 diabetes mellitus without complications

== ENCOUNTER → 2024-04-14 08:00 | Outpatient (BNVA) | payer MEDICARE, SELFPAY | PROVIDERS: PCP Internal Medicine; Visit Provider Internal Medicine | DX: E03.9 Hypothyroidism, unspecified (principal); E78.5 Hyperlipidemia, unspecified; I10 Essential (primary) hypertension; E11.9 Type 2 diabetes mellitus without complications | CPT/HCPCS: 96127; 99212 ==

== ENCOUNTER 2024-05-16 08:39 | Outpatient (REF) | payer MEDICARE, SELFPAY ==
--- NOTE | ~2024-05-16 | MM_ITS ---
EXAMINATION: MM SCREENING DIGITAL BREAST TOMOSYNTHESIS, BILATERAL CLINICAL INFORMATION: Screening. Asymptomatic. COMPARISON: Mammography: Comparison is made with available priors TECHNIQUE: Digital breast mammography with tomosynthesis is performed in both the craniocaudal and mediolateral oblique views along with computer-aided detection (CAD). FINDINGS: The breasts are heterogeneously dense, which may obscure small masses (ACR BI-RADS breast composition Category c). There are no significant masses, abnormal calcifications, or other abnormalities. MM/MM tomosynthesis screening BI IMPRESSION: No mammographic evidence of malignancy. ASSESSMENT: BI-RADS BI-RADS 1 - Negative RECOMMENDATION: Routine annual mammography screening. 1 year F/U This examination should not preclude the clinical evaluation of a suspicious palpable abnormality. This patient's information was entered into a reminder system with a target due date for their next mammogram. Electronically signed by: Jasmin Martinez DO 05/26/2024 08:48 AM [facility]
== END 2024-05-16 08:40 | disposition home or self-care (01) ==
LOC: HO.MAMMO 08:39
PROVIDERS: PCP Internal Medicine; Visit Provider Internal Medicine
DX: Z12.31 Encounter for screening mammogram for malignant neoplasm of breast (principal)
CPT/HCPCS: 77063; 77067

== ENCOUNTER → 2024-05-16 09:00 | Outpatient (BNV) | payer MEDICARE, SELFPAY | PROVIDERS: PCP Internal Medicine; Visit Provider Internal Medicine | DX: Z12.31 Encounter for screening mammogram for malignant neoplasm of breast (principal) | CPT/HCPCS: 77063; 77067 ==

== ENCOUNTER 2024-07-27 11:43 | Day surgery (SDC) | payer MEDICARE, SELFPAY ==
--- NOTE | 2024-07-24 11:48 | P.CONAN_ITS ---
Documented by User: Erlinda Razo NP 07/24/24 11:49 HPI - Anesthesia Eval Consult details Narrative: 69yo F for Colonoscopy PMFSH Active Problems Active Problems: All Active Problems Diabetes mellitus, without long-term current use of insulin (Acute) Essential hypertension (Acute) Seasonal allergies (Acute) Osteoarthritis of left knee (Acute) Atrophic vaginitis (Acute) Urinary, incontinence, stress female (Acute) Dyslipidemia (Acute) Acquired hypothyroidism (Acute) Past Medical History Medical History (Updated 04/14/24 @ 08:36 by Nesha Jay MD) Diabetes mellitus, without long-term current use of insulin Essential hypertension Family history of diabetes mellitus in first degree relative Vitamin D deficiency Lumbago without sciatica History of depression Seasonal allergies Osteoarthritis of left knee Atrophic vaginitis History of COVID-19 Urinary, incontinence, stress female Dyslipidemia Acquired hypothyroidism Skin lesion of face Family History Family History Mother Colon cancer Diabetes mellitus Father Diabetes mellitus Surgical History Surgical History (Updated 07/27/24 @ 11:54 by Sherrie Ortega RN) H/O colonoscopy Hx of foot surgery History of cataract surgery History of right cataract surgery History of carpal tunnel surgery of right wrist H/O tubal ligation Hx of tonsillectomy History of excision of lesion Social History Social History Housing: House Alcohol intake: never Patient Tobacco Use Status: Never used Tobacco e-Cigarette/Vaping Use: Never Used Use of substances other than those prescribed or required for medical reasons: No Are you DNR?: No Advance Directives: No Advance Directives Information Provided: Yes Current occupational status: employed 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 Cognitive needs: No Hearing needs: No Vision needs: Yes Meds Allergies Allergy/AdvReac Type Severity Reaction Status Date / Time Sulfa (Sulfonamide Allergy Unknown Unknown Verified 07/27/24 11:54 Antibiotics) Home Medications ?Medication ?Instructions ?Recorded ?Confirmed ?Last Taken ?Type cholecalciferol (vitamin D3) 50 50 mcg PO DAILY 04/14/24 04/14/24 Unknown History mcg (2,000 unit) capsule Assessment and Plan Assessment Anesthesia Assessment: Chart Reviewed Documented by User: Magalis Guevara MD 07/27/24 12:11 [facility] Past Medical History Medical History (Updated 04/14/24 @ 08:36 by Nesha Jay MD) Diabetes mellitus, without long-term current use of insulin Essential hypertension Family history of diabetes mellitus in first degree relative Vitamin D deficiency Lumbago without sciatica History of depression Seasonal allergies Osteoarthritis of left knee Atrophic vaginitis History of COVID-19 Urinary, incontinence, stress female Dyslipidemia Acquired hypothyroidism Skin lesion of face Family History Family History Mother Colon cancer Diabetes mellitus Father Diabetes mellitus Family history of problems with anesthesia: No Surgical History Surgical History (Updated 07/27/24 @ 11:54 by Sherrie Ortega RN) H/O colonoscopy Hx of foot surgery History of cataract surgery History of right cataract surgery History of carpal tunnel surgery of right wrist H/O tubal ligation Hx of tonsillectomy History of excision of lesion History of Problems with Anesthesia: No Social History Social History Housing: House Alcohol intake: never Patient Tobacco Use Status: Never used Tobacco e-Cigarette/Vaping Use: Never Used Use of substances other than those prescribed or required for medical reasons: No Are you DNR?: No Advance Directives: No Advance Directives Information Provided: Yes Current occupational status: employed 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 Cognitive needs: No Hearing needs: No Vision needs: Yes Meds Allergies Allergy/AdvReac Type Severity Reaction Status Date / Time Sulfa (Sulfonamide Allergy Unknown Unknown Verified 07/27/24 11:54 Antibiotics) Home Medications ?Medication ?Instructions ?Recorded ?Confirmed ?Last Taken ?Type cholecalciferol (vitamin D3) 50 50 mcg PO DAILY 04/14/24 04/14/24 Unknown History mcg (2,000 unit) capsule Exam Airway Mallampati Class: II TM Dist: >3cm Neck ROM: Full Heart: rrr Lungs: cta Assessment and Plan Assessment Anesthesia Assessment: Anesthesia Plan Discussed Final Anesthetic Review Family History of Problems with Anesthesia: No History of Problems with Anesthesia: No NPO: Yes ASA Class: III Final Preanesthetic Review: No Changes in Pt Med Stat, Meds/Allgs Chart Reviewed and Consent Obtained/Reviewed Patient Risk: Low Procedure Risk: Low Anesthetic Plan Anesthetic Plan: MAC: Disposition: Standard PACU
[2024-07-27 11:54] VITALS: BMI 31.9
[2024-07-27 11:58] VITALS: BP 138/84; PULSE 90; RESP 15; TEMP 37.2; O2SAT 97
[2024-07-27 12:09] LABS: Glucose, Whole Blood 131 mg/dL (60-115)
[2024-07-27] MEDS: Lactated Ringers 1,000 ML 100 ML IVCONT (12:17)
--- NOTE | 2024-07-27 12:53 | P.HPSUR_ITS ---
Pre-Procedural Eval Section A - 24 Hr Update-Section A only Date of Service: 07/27/24 The patient is an INPATIENT: No The patient has been examined within 24 hours of the surgical procedure. The History & Physical has been completed within 30 days and I have reviewed it.: No Section B - Complete if H&P > 30 days Chief Complaint: screening Relevant Family History (Specify if Yes): Yes Relevant Social History: None Present Medications: see Short Stay Collaborative assessment Medical History: Significant History (Diabetes mellitus, without long-term curr ent use of insulin Essential hypertension Family history of diabetes mellitus in first degree relative Vitamin D deficiency Lumbago without sciatica History of depression Seasonal allergies Osteoarthritis of left knee Atrophic vaginitis History of COVID-19 Ur) History of Previous Operations: Relevant previous surgery/procedure and date(s) (History of cataract surgery History of right cataract surgery History of carpal tunnel surgery of right wrist H/O tubal ligation Hx of tonsillectomy History of excision of lesion) Allergies: Allergies Allergy/AdvReac Type Severity Reaction Status Date / Time Sulfa (Sulfonamide Allergy Unknown Unknown Verified 07/27/24 11:54 Antibiotics) Review of Systems Sugical H&P ROS: Negative: Constitution, Cardiovascular, Respiratory and Gastrointestinal Exam Surgical H&P Exam: Normal: Heart, Normal: Lungs, Normal: Extremities and Normal: Abdomen Plan Diagnosis/Plan: Unchanged I have reviewed the history and physical and performed a pertinent physical examination on my patient. No changes have occurred unless specified. Time Spent With Patient Time: Total time managing care of this patient today ____ minutes.
[2024-07-27 13:39] VITALS: BP 104/57; PULSE 77; RESP 16; TEMP 36.1; O2SAT 94
[2024-07-27 13:46] VITALS: BP 104/71; PULSE 87; RESP 16; TEMP 36.1; O2SAT 95
--- NOTE | 2024-07-27 13:49 | P.OPN-COLO_ITS ---
Colonoscopy Operative Note Operative Note Date of Service: 07/27/24 Narrative: COLONOSCOPY TILL CECUM WITH SNARE POLYPECTOMY Pre-op diagnosis: Colon cancer screening, family history of colon cancer (Mom and maternal GM). Post-op diagnosis:? colon polyps, Diverticulosis, hemorrhoids Endoscopist:Gisella Alba MD Anesthesia:?MAC Consent: Indications for the procedure and potential complications of bleeding, perforation, reaction to medications and missed diagnosis were discussed with the patient and informed consent was obtained. Instrument: Olympus PCF H 190 L variable stiffness pediatric colonoscope Monitoring: Vital signs and clinical assessment, intermittent blood pressure monitoring, continuous EKG monitoring, Pulse oximetry and Carbon Dioxide monitoring were done throughout the procedure. Please see anesthesia flowsheet. Colon withdrawl time was 15 minutes. Procedure: The patient was placed in the left lateral decubitis position and pre-procedure medications were administered. After a digital rectal examination of the ano-rectum, the video colonoscope was inserted into the rectum and advanced through the colon to the cecum. The colonoscope was slowly withdrawn in a retrograde panoramic fashion and the colon mucosa was carefully examined including a retroflexed view of the rectum. Findings and interventions are described below. Procedure Difficulty: without difficulty Findings: Terminal Ileum: Not evaluated Cecum: Normal Ascending Colon: Moderate diverticulosis throughout the entire colon Transverse Colon: A 10-12 mm sessile polyp at 70 cms - removed with a hot snare Moderate diverticulosis throughout the entire colon Descending Colon: Moderate diverticulosis throughout the entire colon Sigmoid Colon: A 12-15 mm sessile polyp - removed with a hot. A 3-4 mm sessile polyp - removed with a hot snare. Severe diverticulosis with luminal narrowing Rectum: Normal Ano-rectum: Moderate internal hemorrhoids Colon preparation: Good after some irrigation. [place] Bowel Preparation Scale Right colon; 2 Transverse colon: 2 Left colon; 2 (0 = Unprepared colon segment with mucosa not seen due to solid stool that cannot be cleared. 1 = Portion of mucosa of the colon segment seen, but other areas of the colon segment not well seen due to staining, residual stool and/or opaque liquid. 2 = Minor amount of residual staining, small fragments of stool and/or opaque liquid, but mucosa of colon segment seen well. 3 = Entire mucosa of colon segment seen well with no residual staining, small fragments of stool or opaque liquid) Impression and Post Procedure Diagnosis: Colonoscopy Findings: Three small to medium sized polyps were removed Moderate diverticulosis seen in the entire colon Moderate hemorrhoids on retroflexed exam. Plan: I will send a letter with biopsy results. Repeat Colonoscopy in 3-5 years if polyps are adenomatous and 10 year if polyps are hyperplastic. Above findings were reviewed with the patient and relevant handouts were given and the discharge area. BIOPSIES SHOWED: A. Colon, transverse at 70 cm, polypectomy: Tubular adenoma; negative for high- grade dysplasia or carcinoma. B. Colon, sigmoid, polypectomies: Tubular adenomata; negative for high-grade dysplasia or carcinoma. Letter sent advising repeat colonoscopy in 3 years. Patient was placed on the colonoscopy recall list.
== END 2024-07-27 14:12 | disposition home or self-care (01) ==
PROVIDERS: PCP Internal Medicine; Visit Provider Internal Medicine Gastroenterology
PROC: 0DJD8ZZ Inspection of Lower Intestinal Tract, Via Natural or Artificial Opening Endoscopic (ICD-10-PCS; CPT 45378; principal; 2024-07-27 13:40)
DX: Z12.11 Encounter for screening for malignant neoplasm of colon (principal); D12.4 Benign neoplasm of descending colon; D12.5 Benign neoplasm of sigmoid colon; K57.30 Diverticulosis of large intestine without perforation or abscess without bleeding; K64.8 Other hemorrhoids; K56.699 Other intestinal obstruction unspecified as to partial versus complete obstruction; Z80.0 Family history of malignant neoplasm of digestive organs; E11.9 Type 2 diabetes mellitus without complications; I10 Essential (primary) hypertension; E78.5 Hyperlipidemia, unspecified; E03.9 Hypothyroidism, unspecified; Z79.02 Long term (current) use of antithrombotics/antiplatelets; Z79.84 Long term (current) use of oral hypoglycemic drugs; Z79.899 Other long term (current) drug therapy
CPT/HCPCS: 45385; 82947; 88305; J1596; J2003; J2704

== ENCOUNTER → 2024-07-27 11:43 | Outpatient (BNV) | payer MEDICARE, SELFPAY | PROVIDERS: PCP Internal Medicine; Visit Provider Internal Medicine Gastroenterology | DX: Z12.11 Encounter for screening for malignant neoplasm of colon (principal); Z80.0 Family history of malignant neoplasm of digestive organs; D12.3 Benign neoplasm of transverse colon; K57.90 Diverticulosis of intestine, part unspecified, without perforation or abscess without bleeding; K64.8 Other hemorrhoids | CPT/HCPCS: 45385 ==

== ENCOUNTER 2024-08-31 12:41 | Outpatient (AMB) | payer MEDICARE, SELFPAY ==
--- NOTE | 2024-08-31 13:22 | MHC.OFFWIV ---
Intake Vital Signs 08/31/24 13:23 Weight 196 lb BP 140/80 H Blood Pressure Location Rt brachial Position Sitting Pulse 72 Pulse Source Pulse Oximeter Temp 98.7 F Temp Source Oral Pulse Oximetry (%) 98 Oxygen Delivery Method Room Air Intake Visit Reasons: EP cough, weakness, lungs feel heavy Intake Note: Patient here for cough, chest heaviness that has been present for over 3 weeks. Patient Tobacco Use Status: Never used Tobacco Allergies Sulfa (Sulfonamide Antibiotics) Allergy (Unknown, Verified 08/31/24 13:23) Unknown Do you need a note to return to daycare/school/sports/work: No HPI HPI Comments History of Present Illness Details History - The patient is a 69-year-old female presenting with a persistent cough. - Cough persisted for approximately three and a half weeks, initially suspected to be a head cold. - Experiences bouts of continuous coughing, without shortness of breath or wheezing, but with a sensation of chest heaviness. - Initial fever noted, which has resolved; however, sinus pain remains, with no pain upon sinus palpation. - Is fatigued, with increased tiredness in the mornings, and currently uses NyQuil, resulting in side effects of tiredness and dizziness. - No history of COPD or asthma. Physical Exam General: Cooperative, healthy appearing, comfortable and no acute distress Orientation/consciousness: Patient oriented x3 Limitations: No limitations Head: Normal to inspection Ears: Hearing grossly normal bilaterally, external ears normal and TM's normal bilaterally Nose: Normal external nose present, Normal nares present and No nasal discharge present Face and sinus: Normal facial exam and Yes sinuses nontender Mouth: Normal oral and palatal mucosa present and moist mucous membranes Throat: Yes tonsils normal, Yes uvula midline. Posterior oropharynx erythema Eyes: Appearance normal, both eyes and all related structures Neck: Normal visual inspection Respiratory: Clear to auscultation bilaterally. Normal respiratory effort, able to speak in complete sentences, Actively coughing, no respiratory distress, not tachypneic, no tripod positioning and no use of accessory muscles Cardiovascular: Regular rate and rhythm. Normal S1 and S2 Skin: No rashes or lesions noted Neuro: Patient oriented x3 Extremities: Normal to inspection and Yes no clubbing, cyanosis or edema [facility] Medical History (Updated 08/31/24 @ 13:58 by Jeanne Davis PA-C) Diabetes mellitus, without long-term current use of insulin Essential hypertension Family history of diabetes mellitus in first degree relative Vitamin D deficiency Lumbago without sciatica History of depression Seasonal allergies Osteoarthritis of left knee Atrophic vaginitis History of COVID-19 Urinary, incontinence, stress female Dyslipidemia Acquired hypothyroidism Skin lesion of face Surgical History (Updated 07/27/24 @ 11:54 by Sherrie Ortega RN) H/O colonoscopy Hx of foot surgery History of cataract surgery History of right cataract surgery History of carpal tunnel surgery of right wrist H/O tubal ligation Hx of tonsillectomy History of excision of lesion Family History Mother Colon cancer Diabetes mellitus Father Diabetes mellitus Social History Housing: House Alcohol intake: never Patient Tobacco Use Status: Never used Tobacco e-Cigarette/Vaping Use: Never Used Current occupational status: employed 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 The patient's symptoms are indicative of bacterial pneumonia, specifically walking pneumonia. A five-day course of Azithromycin Z-Kojo has been prescribed, beginning with a doubled dose on the first day, followed by a single tablet daily. Additionally, Tessalon Perles are recommended to suppress the cough at night and improve sleep quality, administered up to every eight hours as required. The prescription has been sent to the designated pharmacy at [facility]. It is anticipated that these measures will address the residual cough and improve the patient's overall condition. Patient was informed and verbally consented to the use of an ambient scribe for clinic note documentation during this visit Medications: New benzonatate 200 mg PO TID PRN 10 caps 0RF cough azithromycin For 250 mg dose pack: take 500 mg today (day 1), then 250 mg for 4 days (days 2-5) PO 6 tabs 0RF Coding Level of Care Code Est Pt Level 3 (04255) Diagnoses Atypical pneumonia J18.9
[2024-08-31 13:23] VITALS: BP 140/80; PULSE 72; TEMP 37.1; O2SAT 98
== END 2024-08-31 14:11 | disposition home or self-care (01) ==
PROVIDERS: PCP Internal Medicine; Visit Provider Physician Assistant
DX: J18.9 Pneumonia, unspecified organism (principal)

== ENCOUNTER → 2024-08-31 12:41 | Outpatient (BNVA) | payer MEDICARE, SELFPAY | PROVIDERS: PCP Internal Medicine | DX: J18.9 Pneumonia, unspecified organism (principal) | CPT/HCPCS: 99212 ==

== ENCOUNTER 2024-12-09 07:43 | Outpatient (REF) | payer MEDICARE, SELFPAY ==
--- OUTSIDE RECORDS SUMMARY | 2024-12-09 08:04 | XMS_ITS | Clinical Summary ---
Author Organization [employer] Address [address] [place] [address] [address] [place] [address] Care Team Providers Care Parker Name Role Phone Unavailable Primary Care Provider Unavailabl e Immunizations Immunization Administration Dates Next Due Influenza injectable quadrivalent preservative f ree 08/01/2023 Social History Tobacco Use Types Packs/Day Years Used Date Smoking Tobacco: Never Assessed Comments Unknown Sex and Gender Information Value Date Recorded Sex Assigned at Female 08/01/2023 2:22 PM EST Legal Sex Female 11:28 AM EDT Gender Identity Female 08/01/2023 2:22 PM EST Sexual Orientation Straight 08/01/2023 2: 22 PM EST Plan of Treatment Health Maintenance Due Date Last Done Comments CT Colonography 1953 Colonoscopy 1953 Colorectal Cancer Screening 1953 Depression Screening 1953 FIT DNA/Cologuard 1953 FIT 1953 FOBT 1953 SDOH Screening 1953 Sigmoidoscopy 1953 Alcohol/Substance Use Screening 1965 Tobacco Screening 1965 Hepatitis C Screening 1971 DTaP/Tdap/Td Vaccines (1 - Tdap) 1972 Mammogram 1993 Zoster Vaccines (1 of 2) 2003 COVID-19 Vaccine ( season) 2024 01/27/2022, 07/27/2021, 10/16/2020, Additional history exists Influenza Vaccine (#1) 2024 , 06/29/2021, 06/04/2020, Additional history exists RSV Patients and Patients Aged 60 years or older (1 - 1-dose 75+ series) 2028 Pneumococcal Vaccine: 50+ Years Completed 11/19/2020, 09/29/2019 HIB Vaccines Aged Out No longer eligi ble based on patient's age to complete this topic HPV Vaccines Aged Out No longer eligi ble based on patient's age to complete this topic Hepatitis A Vaccines Aged Out No long er eligible based on patient's age to complete this topic Hepatitis B Vaccines Aged Out No long er eligible based on patient's age to complete this topic IPV Vaccines Aged Out No longer eligi ble based on patient's age to complete this topic Meningococcal B Vaccine Aged Out No l onger eligible based on patient's age to complete this topic Meningococcal Vaccine Aged Out No rocky oneyda eligible based on patient's age to complete this topic RSV under 20 months Aged Out No longe r eligible based on patient's age to complete this topic Rotavirus Vaccines Aged Out No longer eligible based on patient's age to complete this topic Insurance [facility] MEDIC[facility] ADVANTAGE
[2024-12-09 10:20] LABS: Estimated Average Glucose 140 mg/dL; Hemoglobin A1C 170.5385 umol/L; Hemoglobin A1c % 6.5 % (<6.0); Total Hemoglobin (HGBA1C) 3622.3422 umol/L
[2024-12-09 11:00] LABS: Creatinine Urine 143.07 mg/dL; Microalbum/Creatinine Ratio Ur 25.1 ug/mg cr (<30)
[2024-12-09 11:44] LABS: Alanine Aminotransferase 26 U/L (0-31); Anion Gap 12 (12-20); Aspartate Amino Transferase 35 U/L (5-31); Blood Urea Nitrogen 11 mg/dL (9-16); Calcium 9.1 mg/dL (8.4-10.2); Carbon Dioxide 27 mmol/L (22-29); Chloride 104 mmol/L (96-108); Cholesterol 144 mg/dL (<200); Estimated Glomerular Filt Rate > 60; Glucose Fasting 150 mg/dL (60-99); HDL Cholesterol 46 mg/dL (>40); LDL Cholesterol Calculated 71 mg/dL (<100); Potassium 4.3 mmol/L (3.3-5.1); Sodium 139 mmol/L (135-145); Triglycerides 135 mg/dL (<150)
[2024-12-09 11:56] LABS: Free T4 (Free Thyroxine) 0.91 ng/dL (0.71-1.85); Thyroid Stimulating Hormone 4.93 uIU/mL (0.32-4.0); Vitamin D 25-OH Total 37.2 ng/mL (>30)
== END 2024-12-09 07:44 | disposition home or self-care (01) ==
LOC: HO.HMGCLDS 07:43
PROVIDERS: PCP Internal Medicine; Visit Provider Internal Medicine
DX: E11.9 Type 2 diabetes mellitus without complications (principal); I10 Essential (primary) hypertension; E78.5 Hyperlipidemia, unspecified; E03.9 Hypothyroidism, unspecified
CPT/HCPCS: 36415; 80048; 80061; 82043; 82306; 82570; 83036; 84439; 84443; 84450; 84460

== ENCOUNTER 2024-12-17 08:40 | Outpatient (AMB) | payer MEDICARE, SELFPAY ==
--- NOTE | 2024-12-17 08:43 | A.OFFPC_ITS ---
Vital Signs 12/17/24 08:58 Height 5 ft 4 in Weight 197 lb BMI 33.8 BP 110/68 Blood Pressure Location Rt brachial Position Sitting Respiration 16 Pulse 68 Pulse Source Pulse Oximeter Temp 98.2 F Temp Source Oral Pulse Oximetry (%) 97 Oxygen Delivery Method Room Air Intake Visit Reasons: annual PE Intake Note: Pt is here today fpr her PE: Last mammogram 05/16/24, bone density scan 04/23/23, colonoscopy 07/27/24 Allergies Sulfa (Sulfonamide Antibiotics) Allergy (Unknown, Verified 12/17/24 09:21) Unknown Medication List - Last Reconciled 12/17/24 by Nesha Jay MD cholecalciferol (vitamin D3) 50 mcg PO DAILY levothyroxine 125 mcg PO DAILY lisinopril 10 mg PO DAILY rosuvastatin 5 mg PO Q2D 3 months NS Tobacco use date assessed: 12/17/24 Fall risk assessment: No Falls in past year Last assessed Fall Risk: 12/17/24 Dental Screening Dental Screen Date: 12/17/24 Did you have a dental visit in the last 12 months?: No Did you have a dental problem in the last 6 months where you did not have access to dental care?: No Was dental information given to patient?: Patient has dentist HPI annual PE HPI Details 69-year-old lady here today for her phys ical exam. She has history of hypothyroidism, currently on levothyroxine 125 mcg daily, has hypertension on lisinopril 10 mg daily and hyperlipidemia on rosuvastatin 5 mg taken 1 tablet every other day. She is up-to-date with her breast cancer screening, last done 05/16/2024 with benign findings. Last bone density scan was done 04/23/2023 which showed normal bone density except for beginning osteopenia in left femoral neck. No history of fractures Up-to-date with her colon cancer screening, with last colonoscopy done 08/16/2024, with removal to do tubular adenoma polyps, repeat due again in 5 years [facility] Medical History (Updated 12/17/24 @ 09:37 by Nesha Jay MD) Osteopenia of left femoral neck Diabetes mellitus, without long-term current use of insulin Essential hypertension Family history of diabetes mellitus in first degree relative Vitamin D deficiency Lumbago without sciatica History of depression Seasonal allergies Osteoarthritis of left knee Atrophic vaginitis History of COVID-19 Urinary, incontinence, stress female Dyslipidemia Acquired hypothyroidism Skin lesion of face Surgical History H/O colonoscopy Hx of foot surgery History of cataract surgery History of right cataract surgery History of carpal tunnel surgery of right wrist H/O tubal ligation Hx of tonsillectomy History of excision of lesion Family History Mother Colon cancer Diabetes mellitus Father Diabetes mellitus Social History Housing: House Alcohol intake: never Patient Tobacco Use Status: Never used Tobacco e-Cigarette/Vaping Use: Never Used Current occupational status: employed 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 1. Little interest or pleasure in doing things: not at all 2. Feeling down, depressed, or hopeless: not at all 3. Trouble falling or staying asleep, or sleeping too much: not at all 4. Feeling tired or having little energy: not at all 5. Poor appetite or overeating: not at all 6. Feeling bad about yourself - or that you are a failure or have let yourself or your family down: not at all 7. Trouble concentrating on things, such as reading the newspaper or watching television: not at all 8. Moving or speaking so slowly that other people could have noticed. Or the opposite - being so fidgety or restless that you have been moving around a lot more than usual: not at all 9. Thoughts that you would be better off or of hurting yourself in some way: not at all Total score: 0 Depression Screening Interpretation: Negative Depression Screening Done: Yes 17909 - PHQ-9 Billing: Yes Source: Developed by Drs. Alvarado Romano, Eliza Guzman, Raúl Feldman and colleagues, with an educational nabor from [employer]. Thrive Questionnaire Date Thrive assessed: 12/10/24 I am a: Patient What is your living situation today?: I have a steady place to live Within the past 12 months, did the food you bought not last and you didn't have the money to get more?: Never true Within the past 12 months, did you worry whether your food would run out before you got money to buy more?: Never true Do you have trouble paying for medicines?: No Do you have trouble getting transportation to medical appointments?: No Do you have trouble paying your heating and electricity bill?: No Do you have trouble taking care of your child, family member or friend?: No Do you have trouble with day-to-day activities such as bathing, preparing meals, shopping, managing finances, etc.?: No Are you currently unemployed and looking for a job?: No Are you interested in more education?: No Please select the resources that you would like help with: None Currently or been in a relationship where the following occur: No concerns reported THRIVE Score: 0 AUDIT C Alcohol Use Questionnaire (AUDIT-C) 1. How often do you have a drink containing alcohol?: Monthly or less 2. How many drinks containing alcohol do you have on a typical day when you are drinking?: 1 or 2 3. How often do you have six or more drinks on one occasion?: Never Total Score: 1 MARTINE-7 AMB Questionnaire MARTINE-7 Date MARTINE - 7 assessed: 12/17/24 Feeling nervous, anxious, or on edge: 0 = Not at all Not being able to stop or control worryin = Not at all Worrying too much about different things: 0 = Not at all Trouble relaxin = Not at all Being so restless that it is hard to sit still: 0 = Not at all Becoming easily annoyed or irritable: 0 = Not at all Feeling afraid as if something awful might happen: 0 = Not at all Total MARTINE-7 score (0-4 normal; 5-9 mild; 10-14 moderate; 15-21 severe): 0 Source: Developed by Drs. Alvarado Romano, Eliza Guzman, Raúl Feldman and colleagues, with an educational nabor from [employer]. MARTINE-7 Assessment Billing MARTINE-7 Assessment Tool: MARTINE-7 Assessment 37169 Review of Systems Const Reports no additional complaints Eyes Details: Sees Dr. Paez Reports no additional complaints ENT Reports no additional complaints Card Reports no additional complaints Resp Reports no additional complaints GI Denies abdominal pain, Denies melena, Denies bloating, Denies change in bowel huizar bits, Denies heartburn and Denies nausea Musc Reports no additional complaints Neuro Reports no additional complaints Psych Reports no additional complaints Endo Reports no additional complaints Brian/Lymph Reports no additional complaints Aller/Immun Reports no additional complaints Physical exam (Primary Care) Vital Signs: Last Vital Signs Temp 98.2 F 12/17/24 08:58 Pulse 68 12/17/24 08:58 Resp 16 12/17/24 08:58 BP 110/68 12/17/24 08:58 Pulse Ox 97 12/17/24 08:58 Oxygen Delivery Method Room Air 12/17/24 08:58 BMI result Body Mass Index 33.8 BMI Assessment/Plan discussion: High BMI High, discussed plan: lifestyle, weight reduction, dietary and physical activity Tobacco/Smoking Status: Tobacco use Status Tobacco use date assessed 12/17/24 12/17/24 08:45 Patient Tobacco Use Status Never used Tobacco 12/17/24 08:45 e-Cigarette/Vaping Use Never Used 12/17/24 08:45 PHQ-9: PHQ-9 Score PHQ-9: Total score 0 12/17/24 09:22 Depression Screening Interpretation: Negative Thrive Assessment: Date of Thrive Assessment Date Thrive assessed 12/10/24 12/17/24 08:45 Currently or been in a relationship where the following occur: No concerns reported Const Other: Alert oriented x3, no acute distress noted, ambulatory with normal gait Nutritional Appearance: obese HENFL Head: Yes normocephalic Ears: external ears normal General nose exam: Normal external nose present Face and sinus: Yes face symmetric Mouth: moist mucous membranes Eyes General: appearance normal, both eyes and all related structures Neck Neck: Yes full ROM, Yes no lymphadenopathy and Yes supple Thyroid: Thyroid normal Chest Breast/axilla palpation: normal palpation of the breasts Resp Effort & Inspection: normal respiratory effort and able to speak in complete sentences Auscultation: clear to auscultation bilaterally Cardio Rate: regular rate Rhythm: regular rhythm Heart sounds: S1 normal heart sound present and S2 normal heart sound present GI Inspection: Yes obesity and Yes other (Pierced navel) Palpation (GI): Soft to palpation, nontender, no guarding and no masses Auscultation: normal bowel sounds Neuro General: gait normal, tone normal, moves all extremities, Normal light touch and pain sensation, no focal motor deficits, CN's II-XI intact bilaterally and normal sensation to monofilament Cognition (Neuro): normal cognition Gait exam (Neuro): Normal gait present Extrem General: Yes full ROM, Yes no joint enlargement, Yes no clubbing, cyanosis or edema and Yes no calf tenderness Psych Appearance: grossly normal and well kempt Mental Status: mental status grossly normal Speech and movement: Normal speech and movement present Affect: normal affect Attitude: cooperative Thought process: Normal thought process present Thought content: Normal thought content present Results Reviewed Results Reviewed: Name: Faiza Centeno Age/Sex: 69/F : 1955 Unit#: [id number] Attend Dr: Nesha Jay MD Re12/09/24 Status: DEP REF Location: [facility] Disch: SPEC : [id number] TRICIA: 12/09/24 STATUS: COMP REQ : [id number] RECD: 12/09/24-[address]: Nesha Jay MD COMP: 12/09/246 ENTERED: 12/09/[address]: ORDERED: Met Prof Fast, AST, ALT, Lipid Panel, Vitamin D 25-OH, Free T4, TSH Test Result Flag Reference Sodium 139 135-145 mmol/L Potassium 4.3 3.3-5.1 mmol/L CL 104 96-108 mmol/L CO2 27 22-29 mmol/L Gap 12 12-20 BUN 11 9-16 mg/dL Creat 0.70 0.5-1.4 mg/dL eGFR > 60 Chronic Kidney Disease: Estimated GFR < 60 mL/min/1.73m2 Severe Kidney Disease: Estimated GFR < 15 mL/min/1.73m2 FBS 150 H 60-99 mg/dL A fasting glucose of 126 mg/dl or greater on more than one occasion is considered diagnostic of diabetes. CA 9.1 # 8.4-10.2 mg/dL AST (GOT) 35 H 5-31 U/L ALT (GPT) 26 0-31 U/L Triglyceride 135 <150 mg/dL Desirable Triglyceride: less than 150 mg/dL Borderline High Triglyceride 150-199 mg/dL High Triglyceride: 200-499 mg/dL Very High Triglyceride: greater than or equal to 5OO mg/dL Cholesterol 144 <200 mg/dL Desirable Cholesterol: less than 200 mg/dL Borderline High Cholesterol: 200-239 mg/dL High Cholesterol: greater than 239 mg/dL LDL Calculated 71 <100 mg/dL Desirable LDL: less than 100 mg/dL Near Optimal/Above Optimal LDL: 110-129 mg/dL Borderline High LDL: 130-159 mg/dL High LDL: 160-189 mg/dL Very High LDL: greater than or equal to 190 mg/dL HDL 46 >40 mg/dL Desirable HDL: greater than 40 mg/dL Note: This HDL assay may give artificially low results in patients with liver disease. Vitamin D 25-OH 37.2 >30 ng/mL Health Based Reference Values* < 20 ng/mL Deficient 20-30 ng/mL Insufficient > 30 ng/mL Sufficient *Lyn HUNG. N Engl J Med. 2007;357:266-280 There is no well-established upper level of normal vitamin D levels. Some laboratories use 50 ng/mL as an upper limit of normal. However, toxicity is patient-dependent and may occur at any level. Careful correlation with the patient's presentation is necessary and, if there is concern for vitamin D toxicity, treatment should be considered irrespective of the serum level. Care must be taken in interpreting Vitamin D results from different laboratories and methodologies. Published data demonstrated that results from patients undergoing hemodialysis may show a negative bias when tested with various automated 25-OH vitamin D assays when compared to LC-MS/MS. When testing samples from patients whose predominant form of Vitamin D is Vitamin D2, such as patients receiving Vitamin D2 supplementation, results that are subtherapeutic should be confirmed with another method such as LC-MS/MS. Free T4 0.91 0.71-1.85 ng/dL TSH 3rd Gen. 4.93 H 0.32-4.0 uIU/mL Note: A sustained TSH level above 2.5 uIU/mL may warrant further investigation. TSH 3rd Generation ([facility]) Coding Level of Care Code Est Pt Prev Care >65y(21244) Diagnoses Acquired hypothyroidism E03.9 Dyslipidemia E78.5 Essential hypertension I10 Diabetes mellitus, without long-term current use of insulin E11.9 Osteopenia of left femoral neck M85.852 Annual visit for general adult medical examination with abnormal findings Z00. Additional Codes MARTINE-7 Assessment Billing - MARTINE-7 Assessment Tool: MARTINE-7 Assessment 98901 ([id number]) PHQ-9 - 27569 - PHQ-9 Billing: Yes ([id number]) Assessment & Plan Assessment & Plan (1) Acquired hypothyroidism: Code(s): E03.9 - Hypothyroidism, unspecified Category: Medical Plan: Feels well on current dose of levothyroxine, will continue, recent fasting thyroid levels showed slightly elevated TSH and normal free T4. Repeat levels again in 3-months (2) Dyslipidemia: Code(s): E78.5 - Hyperlipidemia, unspecified Category: Medical Plan: Reviewed recent fasting lipid profile with patient with levels within normal limits . Continue taking rosuvastatin 5 mg every other day , in addition to adherence to low-cholesterol diet and regular exercise, at least 30 minutes 3 to 4 times a week. Advised patient to make healthy food choices, eat more fruits, vegetables, whole grains, wild caught fish and low-fat dairy. Limit amount of meat and fried or fatty food products, as well as processed foods and fast foods. Follow-up scheduled with repeat fasting lipid panel in 3 months. (3) Essential hypertension: Code(s): I10 - Essential (primary) hypertension Category: Medical Plan: Blood pressure at goal of less than 130/80. Continue with lisinopril 10 mg daily Reinforced importance of following a low sodium diet, getting regular exercise, and lowering stress levels. (4) Diabetes mellitus, without long-term current use of insulin: Code(s): E11.9 - Type 2 diabetes mellitus without complications Category: Medical Plan: Latest hemoglobin A1c is at 6.5%. Adherence to healthy eating habits and regular exercise strongly recommended. Will repeat levels again in 3 months (5) Osteopenia of left femoral neck: Code(s): M85.852 - Other specified disorders of bone density and structure, left thigh Category: Medical Plan: Continue regular weight-bearing exercise, take adequate calcium from dietary sources and continue taking vitamin-D 3 supplements 50 mcg daily. Repeat bone density next year together with screening mammogram (6) Annual visit for general adult medical examination with abnormal findings: Code(s): Z00.01 - Encounter for general adult medical examination with abnormal findings Plan: Reviewed recent fasting lab results continue regular dental visit every 6 months and regular yearly eye exams. Take adequate calcium in diet and vitamin- D 3 at 2000 IU per cap once a day, in addition to weight-bearing exercises to help maintain good muscle tone and weight control. Instructed to do self-breast exam, and continue to get yearly mammogram. Screening colonoscopy due again in 2029. Up-to-date with all her vaccines Orders: Orders Alanine Aminotransferase 03/27/25 E03.9 - Hypothyroidism, unspecified, E11.9 - Type 2 diabetes mellitus without complications, E78.5 - Hyperlipidemia, unspecified, I10 - Essential (primary) hypertension, M85.852 - Other specified disorders of bone density and structure, left thigh, Z00.01 - Encounter for general adult medical examination with abnormal findings Lipid Panel 03/27/25 E03.9 - Hypothyroidism, unspecified, E11.9 - Type 2 diabetes mellitus without complications, E78.5 - Hyperlipidemia, unspecified, I10 - Essential (primary) hypertension, M85.852 - Other specified disorders of bone density and structure, left thigh, Z00.01 - Encounter for general adult medical examination with abnormal findings Thyroid Stimulating Hormone 03/27/25 E03.9 - Hypothyroidism, unspecified, E11.9 - Type 2 diabetes mellitus without complications, E78.5 - Hyperlipidemia, unspecified, I10 - Essential (primary) hypertension, M85.852 - Other specified disorders of bone density and structure, left thigh, Z00.01 - Encounter for general adult medical examination with abnormal findings Aspartate Amino Transferase 03/27/25 E03.9 - Hypothyroidism, unspecified, E11.9 - Type 2 diabetes mellitus without complications, E78.5 - Hyperlipidemia, unspecified, I10 - Essential (primary) hypertension, M85.852 - Other specified disorders of bone density and structure, left thigh, Z00.01 - Encounter for general adult medical examination with abnormal findings Basic Metabolic Panel Fasting 03/27/25 E03.9 - Hypothyroidism, unspecified, E11.9 - Type 2 diabetes mellitus without complications, E78.5 - Hyperlipidemia, unspecified, I10 - Essential (primary) hypertension, M85.852 - Other specified disorders of bone density and structure, left thigh, Z00.01 - Encounter for general adult medical examination with abnormal findings Hemoglobin A1c 03/27/25 E03.9 - Hypothyroidism, unspecified, E11.9 - Type 2 diabetes mellitus without complications, E78.5 - Hyperlipidemia, unspecified, I10 - Essential (primary) hypertension, M85.852 - Other specified disorders of bone density and structure, left thigh, Z00.01 - Encounter for general adult medical examination with abnormal findings Vitamin D 25-OH Total 03/27/25 E03.9 - Hypothyroidism, unspecified, E11.9 - Type 2 diabetes mellitus without complications, E78.5 - Hyperlipidemia, unspecified, I10 - Essential (primary) hypertension, M85.852 - Other specified disorders of bone density and structure, left thigh, Z00.01 - Encounter for general adult medical examination with abnormal findings Free T4 (Free Thyroxine) 03/27/25 E03.9 - Hypothyroidism, unspecified, E11.9 - Type 2 diabetes mellitus without complications, E78.5 - Hyperlipidemia, unspecified, I10 - Essential (primary) hypertension, M85.852 - Other specified disorders of bone density and structure, left thigh, Z00.01 - Encounter for general adult medical examination with abnormal findings Thyroid Peroxidase Antibodies 03/27/25 E03.9 - Hypothyroidism, unspecified, E11.9 - Type 2 diabetes mellitus without complications, E78.5 - Hyperlipidemia, unspecified, I10 - Essential (primary) hypertension, M85.852 - Other specified disorders of bone density and structure, left thigh, Z00.01 - Encounter for general adult medical examination with abnormal findings
--- OUTSIDE RECORDS SUMMARY | 2024-12-17 08:55 | XMS_ITS | Clinical Summary ---
Author Organization [employer] Address [address] [place] [address] [address] [place] [address] Care Team Providers Care Fur Sorter Name Role Phone Unavailable Primary Care Provider [...] patient's age to complete this topic Insurance [facility] MEDICARE ADVANTAGE
[2024-12-17 08:58] VITALS: BP 110/68; PULSE 68; RESP 16; TEMP 36.8; O2SAT 97; BMI 33.8
== END 2024-12-17 09:39 | disposition home or self-care (01) ==
PROVIDERS: PCP Internal Medicine; Visit Provider Internal Medicine
DX: Z00.01 Encounter for general adult medical examination with abnormal findings (principal); E11.69 Type 2 diabetes mellitus with other specified complication; E03.9 Hypothyroidism, unspecified; E78.5 Hyperlipidemia, unspecified; I10 Essential (primary) hypertension; M85.852 Other specified disorders of bone density and structure, left thigh

== ENCOUNTER → 2024-12-17 08:40 | Outpatient (BNVA) | payer MEDICARE, SELFPAY | PROVIDERS: PCP Internal Medicine; Visit Provider Internal Medicine | DX: Z00.01 Encounter for general adult medical examination with abnormal findings (principal); E03.9 Hypothyroidism, unspecified; E78.5 Hyperlipidemia, unspecified; I10 Essential (primary) hypertension; E11.9 Type 2 diabetes mellitus without complications; M85.852 Other specified disorders of bone density and structure, left thigh; Z79.899 Other long term (current) drug therapy | CPT/HCPCS: 96127; 99397 ==

== ENCOUNTER 2025-03-16 06:41 | Outpatient (REF) | payer MEDICARE, SELFPAY ==
--- OUTSIDE RECORDS SUMMARY | 2025-03-16 06:45 | XMS_ITS | Clinical Summary ---
Author Organization [employer] Address [address] [place] [address] [address] [place] [address] Care Team Providers Care Mail List Processor Name Role Phone Unavailable Primary Care Provider [...] 10/16/2020, Additional history exists Influenza Vaccine (#1) 2025 , 06/29/2021, 06/04/2020, Additional history exists RSV [...] patient's age to complete this topic Insurance [facility] MEDICARE ADVANTAGE
[2025-03-16 10:30] LABS: Hemoglobin A1C 188.9946 umol/L; Total Hemoglobin (HGBA1C) 3545.9963 umol/L
[2025-03-16 10:46] LABS: Alanine Aminotransferase 25 U/L (0-31); Anion Gap 12 (12-20); Aspartate Amino Transferase 32 U/L (5-31); Blood Urea Nitrogen 12 mg/dL (9-16); Calcium 9.8 mg/dL (8.4-10.2); Carbon Dioxide 25 mmol/L (22-29); Chloride 106 mmol/L (96-108); Cholesterol 136 mg/dL (<200); Estimated Glomerular Filt Rate > 60; HDL Cholesterol 41 mg/dL (>40); Potassium 4.3 mmol/L (3.3-5.1); Sodium 139 mmol/L (135-145); Triglycerides 137 mg/dL (<150)
[2025-03-16 11:10] LABS: Free T4 (Free Thyroxine) 0.78 ng/dL (0.71-1.85); Thyroid Stimulating Hormone 7.66 uIU/mL (0.32-4.0)
== END 2025-03-16 06:42 | disposition home or self-care (01) ==
LOC: HO.HMGCLDS 06:41
PROVIDERS: PCP Internal Medicine; Visit Provider Internal Medicine
DX: Z00.01 Encounter for general adult medical examination with abnormal findings (principal); I10 Essential (primary) hypertension; E11.9 Type 2 diabetes mellitus without complications; M85.852 Other specified disorders of bone density and structure, left thigh; E78.5 Hyperlipidemia, unspecified; E03.9 Hypothyroidism, unspecified
CPT/HCPCS: 36415; 80048; 80061; 82306; 83036; 84439; 84443; 84450; 84460; 86376

== ENCOUNTER 2025-03-23 07:57 | Outpatient (AMB) | payer MEDICARE, SELFPAY ==
--- OUTSIDE RECORDS SUMMARY | 2025-03-23 08:04 | XMS_ITS | Clinical Summary ---
Author Organization [employer] Address [address] [place] [address] [address] [place] [address] Care Team Providers Care Tar Heat Exchanger Cleaner Name Role Phone Unavailable Primary Care Provider [...] patient's age to complete this topic Insurance [facility] MEDICARE ADVANTAGE
[2025-03-23 08:15] VITALS: BP 134/80; PULSE 62; RESP 16; TEMP 37; O2SAT 98; BMI 33.8
--- NOTE | 2025-03-23 08:15 | A.OFFPC_ITS ---
Vital Signs 03/23/25 08:15 Height 5 ft 4 in Weight 197 lb BMI 33.8 BP 134/80 Blood Pressure Location Lt brachial Position Sitting Respiration 16 Pulse 62 Pulse Source Pulse Oximeter Temp 98.6 F Temp Source Oral Pulse Oximetry (%) 98 Oxygen Delivery Method Room Air Intake Visit Reasons: 3m f/u Allergies Sulfa (Sulfonamide Antibiotics) Allergy (Unknown, Verified 03/23/25 08:37) Unknown Medication List - Last Reconciled 03/23/25 by Nesha Jay MD cholecalciferol (vitamin D3) 50 mcg PO DAILY levothyroxine 125 mcg PO DAILY lisinopril 10 mg PO DAILY rosuvastatin 5 mg PO Q2D 3 months Tobacco use date assessed: 03/23/25 Fall risk assessment: No Falls in past year Last assessed Fall Risk: 03/23/25 Dental Screening Dental Screen Date: 03/23/25 Did you have a dental visit in the last 12 months?: No Did you have a dental problem in the last 6 months where you did not have access to dental care?: No Was dental information given to patient?: Patient has dentist HPI 3m f/u HPI Details - 69-year-old female with type 2 diabete s mellitus, hypothyroidism, hyperlipidemia, here today for a follow-up - Hypothyroidism: TSH levels have increa sed seen on latest labs done, but free T4 hormones are normal. No symptoms such as fatigue or constipation reported, and medication dosage remains unchanged. - Type 2 Diabetes Mellitus: She discont inued metformin due to development of diarrhea since starting the medication has been off metformin now for the last 2 weeks - Hyperlipidemia: Cholesterol levels are stable on rosuvastatin. - Microalbuminuria: Elevated levels lester cating early renal involvement, discussed in diabetes management context. - Preventative care: Up to date with flu and pneumonia vaccinations. [facility] Medical History Osteopenia of left femoral neck Diabetes mellitus, without long-term current use of insulin Essential hypertension Family history of diabetes mellitus in first degree relative Vitamin D deficiency Lumbago without sciatica History of depression Seasonal allergies Osteoarthritis of left knee Atrophic vaginitis History of COVID-19 Urinary, incontinence, stress female Dyslipidemia Acquired hypothyroidism Skin lesion of face Surgical History H/O colonoscopy Hx of foot surgery History of cataract surgery History of right cataract surgery History of carpal tunnel surgery of right wrist H/O tubal ligation Hx of tonsillectomy History of excision of lesion Family History Mother Colon cancer Diabetes mellitus Father Diabetes mellitus Social History Housing: House Alcohol intake: never Patient Tobacco Use Status: Never used Tobacco e-Cigarette/Vaping Use: Never Used Current occupational status: employed 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 Cognitive needs: No Hearing needs: No Vision needs: Yes Questionnaire Thrive Questionnaire Date Thrive assessed: 12/10/24 I am a: Patient What is your living situation today?: I have a steady place to live Within the past 12 months, did the food you bought not last and you didn't have the money to get more?: Never true Within the past 12 months, did you worry whether your food would run out before you got money to buy more?: Never true Do you have trouble paying for medicines?: No Do you have trouble getting transportation to medical appointments?: No Do you have trouble paying your heating and electricity bill?: No Do you have trouble taking care of your child, family member or friend?: No Do you have trouble with day-to-day activities such as bathing, preparing meals, shopping, managing finances, etc.?: No Are you currently unemployed and looking for a job?: No Are you interested in more education?: No Please select the resources that you would like help with: None Currently or been in a relationship where the following occur: No concerns reported THRIVE Score: 0 MARTINE-7 AMB Questionnaire MARTINE-7 Date MARTINE - 7 assessed: 12/17/24 Source: Developed by Drs. Alvarado Romano, Eliza Guzman, Raúl Feldman and colleagues, with an educational nabor from [employer] Review of Systems Const Reports no additional complaints Eyes Details: Sees Dr. Paez, up-to-date with her diabetes screening Reports no additional complaints ENT Reports no additional complaints Card Reports no additional complaints Resp Reports no additional complaints GI Reports as per HPI, Denies abdominal pain, Denies melena, Denies bloating and Denies heartburn Reports no additional complaints Musc Reports no additional complaints Neuro Reports no additional complaints Psych Reports no additional complaints Endo Reports no additional complaints Brian/Lymph Reports no additional complaints Aller/Immun Reports no additional complaints Physical exam (Primary Care) Vital Signs: Last Vital Signs Temp 98.6 F 03/23/25 08:15 Pulse 62 03/23/25 08:15 Resp 16 03/23/25 08:15 BP 134/80 03/23/25 08:15 Pulse Ox 98 03/23/25 08:15 Oxygen Delivery Method Room Air 03/23/25 08:15 BMI result Body Mass Index 33.8 BMI Assessment/Plan discussion: High BMI High, discussed plan: lifestyle, weight reduction, dietary and physical activity Tobacco/Smoking Status: Tobacco use Status Tobacco use date assessed 03/23/25 03/23/25 08:20 Patient Tobacco Use Status Never used Tobacco 03/23/25 08:15 e-Cigarette/Vaping Use Never Used 03/23/25 08:15 Thrive Assessment: Date of Thrive Assessment Date Thrive assessed 12/10/24 03/23/25 08:15 Currently or been in a relationship where the following occur: No concerns repo rted Const Other: Alert oriented x3, no acute distress noted, ambulatory with normal gait Nutritional Appearance: obese HENMT Head: Yes normocephalic Ears: external ears normal General nose exam: Normal external nose present Face and sinus: Yes face symmetric Mouth: moist mucous membranes Eyes General: appearance normal, both eyes and all related structures Neck Neck: Yes full ROM, Yes no lymphadenopathy and Yes supple Thyroid: Thyroid normal Chest Breast/axilla palpation: normal palpation of the breasts Resp Effort & Inspection: normal respiratory effort and able to speak in complete sentences Auscultation: clear to auscultation bilaterally Cardio Rate: regular rate Rhythm: regular rhythm Heart sounds: S1 normal heart sound present and S2 normal heart sound present GI Inspection: Yes obesity and Yes other (Pierced navel) Palpation (GI): Soft to palpation, nontender, no guarding and no masses Auscultation: normal bowel sounds Neuro General: gait normal, tone normal, moves all extremities, Normal light touch and pain sensation, no focal motor deficits, CN's II-XI intact bilaterally and normal sensation to monofilament Cognition (Neuro): normal cognition Gait exam (Neuro): Normal gait present Extrem General: Yes full ROM, Yes no joint enlargement, Yes no clubbing, cyanosis or edema and Yes no calf tenderness Psych Appearance: grossly normal and well kempt Mental Status: mental status grossly normal Speech and movement: Normal speech and movement present Affect: normal affect Results Reviewed Results Reviewed: Name: Faiza Centeno Age/Sex: 69/F : 1955 Unit#: [id number] Attend Dr: Nesha Jay MD Re03/16/25 Status: DEP REF [facility] Disch: SPEC : [id number] TRICIA: 03/16/25 STATUS: COMP REQ : [id number] RECD: 03/16/[address]: Nesha Jay MD COMP: 03/16/25 ENTERED: 03/16/[address]: ORDERED: Met Prof Fast, AST, ALT, Lipid Panel, Vitamin D 25-OH, Free T4, TSH Test Result Flag Reference Sodium 139 135-145 mmol/L Potassium 4.3 3.3-5.1 mmol/L CL 106 96-108 mmol/L CO2 25 22-29 mmol/L Gap 12 12-20 BUN 12 9-16 mg/dL Creat 0.71 0.5-1.4 mg/dL eGFR > 60 Chronic Kidney Disease: Estimated GFR < 60 mL/min/1.73m2 Severe Kidney Disease: Estimated GFR < 15 mL/min/1.73m2 FBS 158 H 60-99 mg/dL A fasting glucose of 126 mg/dl or greater on more than one occasion is considered diagnostic of diabetes. CA 9.8 # 8.4-10.2 mg/dL AST (GOT) 32 H 5-31 U/L ALT (GPT) 25 0-31 U/L Triglyceride 137 <150 mg/dL Desirable Triglyceride: less than 150 mg/dL Borderline High Triglyceride 150-199 mg/dL High Triglyceride: 200-499 mg/dL Very High Triglyceride: greater than or equal to 5OO mg/dL Cholesterol 136 <200 mg/dL Desirable Cholesterol: less than 200 mg/dL Borderline High Cholesterol: 200-239 mg/dL High Cholesterol: greater than 239 mg/dL LDL Calculated 68 <100 mg/dL Desirable LDL: less than 100 mg/dL Near Optimal/Above Optimal LDL: 110-129 mg/dL Borderline High LDL: 130-159 mg/dL High LDL: 160-189 mg/dL Very High LDL: greater than or equal to 190 mg/dL HDL 41 >40 mg/dL Desirable HDL: greater than 40 mg/dL Note: This HDL assay may give artificially low results in patients with liver disease. Vitamin D 25-OH 53.9 >30 ng/mL Health Based Reference Values* < 20 ng/mL Deficient 20-30 ng/mL Insufficient > 30 ng/mL Sufficient *Lyn HUNG. N Engl J Med. 2007;357:266-280 There is no well-established upper level of normal vitamin D levels. Some laboratories use 50 ng/mL as an upper limit of normal. However, toxicity is patient-dependent and may occur at any level. Careful correlation with the patient's presentation is necessary and, if there is concern for vitamin D toxicity, treatment should be considered irrespective of the serum level. Care must be taken in interpreting Vitamin D results from different laboratories and methodologies. Published data demonstrated that results from patients undergoing hemodialysis may show a negative bias when tested with various automated 25-OH vitamin D assays when compared to LC-MS/MS. When testing samples from patients whose predominant form of Vitamin D is Vitamin D2, such as patients receiving Vitamin D2 supplementation, results that are subtherapeutic should be confirmed with another method such as LC-MS/MS. Free T4 0.78 0.71-1.85 ng/dL TSH 3rd Gen. 7.66 H 0.32-4.0 uIU/mL Note: A sustained TSH level above 2.5 uIU/mL may warrant further investigation. TSH 3rd Generation ([facility]) Laboratory Tests 12/09/24 03/16/25 07:46 06:55 Estimat Average Glucose 154 Hemoglobin A1c % 7.0 H Urine Creatinine 143.07 Urine Microalbumin 36.0 Microalb/Creat Ratio 25.1 Coding Level of Care Code Est Pt Level 4 (93086) Complex EM visit Add On G2211 Diagnoses Acquired hypothyroidism E03.9 Dyslipidemia E78.5 Essential hypertension I10 Diabetes mellitus, without long-term current use of insulin E11.9 Osteopenia of left femoral neck M85.852 Assessment & Plan Assessment & Plan (1) Acquired hypothyroidism: Code(s): E03.9 - Hypothyroidism, unspecified Category: Medical (2) Dyslipidemia: Code(s): E78.5 - Hyperlipidemia, unspecified Category: Medical (3) Essential hypertension: Code(s): I10 - Essential (primary) hypertension Category: Medical (4) Diabetes mellitus, without long-term current use of insulin: Code(s): E11.9 - Type 2 diabetes mellitus without complications Category: Medical (5) Osteopenia of left femoral neck: Code(s): M85.852 - Other specified disorders of bone density and structure, left thigh Category: Medical Plan Patient was informed and verbally consented to the use of an ambient scribe for clinic note documentation during this visit. 1. Hypothyroidism, unspecified E03.9 The patient's TSH levels have increased, but thyroid hormones remain within normal range. No changes in medication are planned as the patient is asymptomatic and has been on a stable dose for a long time. Monitoring will continue to ensure stability. 2. Type 2 Diabetes Mellitus The patient has a history of type 2 diabetes mellitus and previously discontinued metformin due to gastrointestinal side effects. Current management options discussed include GLP-1 receptor agonists and SGLT2 inhibitors, focusing on weight management and renal protection. Will try on Jardiance 10 mg per tablet taken once a day in a.m. and. Stressed importance of adhering to healthy eating habits and getting regular exercise. Will repeat another hemoglobin A1c in 3 months together with liver enzymes, thyroid hormones and lipid panel. 3. Hyperlipidemia, unspecified E78.5 The patient's cholesterol levels are stable on rosuvastatin. No changes in the current management plan are necessary at this time. 4. Elevated Liver Enzymes Liver enzymes are borderline elevated, but no immediate concern was noted. Continued monitoring is advised to ensure no progression. 5. Microalbuminuria The patient has elevated microalbumin levels, indicating early renal involvement due to diabetes. Management will focus on optimizing diabetes control to prevent further renal damage. Continue lisinopril 10 mg daily 6. Osteopenia left femoral neck- DEXA scan ordered, continue taking vitamin D3 2000 units daily in addition to taking adequate calcium from dietary sources, reinforced importance of doing regular weight-bearing exercise Orders: Orders Hemoglobin A1c 3 Months E11.9 - Type 2 diabetes mellitus without complications, E78.5 - Hyperlipidemia, unspecified, I10 - Essential (primary) hypertension Alanine Aminotransferase 3 Months E11.9 - Type 2 diabetes mellitus without complications, E78.5 - Hyperlipidemia, unspecified, I10 - Essential (primary) hypertension Vitamin D 25-OH Total 3 Months E11.9 - Type 2 diabetes mellitus without complications, E78.5 - Hyperlipidemia, unspecified, I10 - Essential (primary) hypertension Triiodothyronine T3 Free 3 Months E03.9 - Hypothyroidism, unspecified Thyroid Stimulating Hormone 3 Months E03.9 - Hypothyroidism, unspecified XR DEXA axial skeleton 03/23/25 M85.852 - Other specified disorders of bone density and structure, left thigh Aspartate Amino Transferase 3 Months E11.9 - Type 2 diabetes mellitus without complications, E78.5 - Hyperlipidemia, unspecified, I10 - Essential (primary) hypertension Basic Metabolic Panel Fasting 3 Months E11.9 - Type 2 diabetes mellitus without complications, E78.5 - Hyperlipidemia, unspecified, I10 - Essential (primary) hypertension Lipid Panel 3 Months E11.9 - Type 2 diabetes mellitus without complications, E78.5 - Hyperlipidemia, unspecified, I10 - Essential (primary) hypertension Free T4 (Free Thyroxine) 3 Months E03.9 - Hypothyroidism, unspecified Medications: New Jardiance (empagliflozin) 10 mg PO QAM 30 tabs 1RF NS E11.9 - Type 2 diabetes mellitus without complications
== END 2025-03-23 09:05 | disposition home or self-care (01) ==
LOC: HO.HMCC 07:58
PROVIDERS: PCP Internal Medicine; Visit Provider Internal Medicine
DX: E03.9 Hypothyroidism, unspecified (principal); E78.5 Hyperlipidemia, unspecified; I10 Essential (primary) hypertension; E11.9 Type 2 diabetes mellitus without complications; M85.852 Other specified disorders of bone density and structure, left thigh

== ENCOUNTER → 2025-03-23 07:57 | Outpatient (BNVA) | payer MEDICARE, SELFPAY | PROVIDERS: PCP Internal Medicine; Visit Provider Internal Medicine | DX: E11.9 Type 2 diabetes mellitus without complications (principal); E03.9 Hypothyroidism, unspecified; E78.5 Hyperlipidemia, unspecified; R80.9 Proteinuria, unspecified; I10 Essential (primary) hypertension; M85.852 Other specified disorders of bone density and structure, left thigh | CPT/HCPCS: 99212 ==

== ENCOUNTER 2025-05-25 12:53 | Outpatient (REF) | payer MEDICARE, SELFPAY ==
--- NOTE | ~2025-05-25 | MM_ITS ---
EXAMINATION: DXA BONE DENSITY AXIAL HISTORY: M85.852 - Other specified disorders of bone density and structure, left ... TECHNIQUE: restOpolis Dual energy absorptiometry (DEXA) of the lumbar spine, total left hip, and femoral neck was performed. COMPARISON: Comparison is made with the prior examination dated 04/23/2023. FINDINGS: The bone mineral density of the lumbar spine is 1.329 g/cm2, corresponding to a T-score of 1.2, and a Z-score of 2.3. This is indicative of normal bone mineral density. This represents a BMD change of 9.8% compared to the prior exam. This is statistically significant. The bone mineral density of the left total hip is 0.991 g/cm2, corresponding to a T-score of -0.1, and a Z-score of 1.0. This is indicative of normal bone mineral density.- This represents a BMD change of 1.2% compared to the prior exam. This is not statistically significant. The bone mineral density of the left femoral neck is 0.868 g/cm2, corresponding to a T-score of -1.2, and a Z-score of 0.1. This is indicative of osteopenia. This represents a BMD change of 1.5% compared to the prior exam. FRACTURE RISK: The FRAX index suggests a ten year probability of major osteoporotic fracture of 9.3%, and of hip fracture 1.2%. MM/XR DEXA axial skeleton IMPRESSION: Based on bone mineral density, and according to World Health Organization (WHO) criteria, the diagnosis is consistent with osteopenia. Statistically, 68% of repeat scans fall within 1 SD (+/- 0.010 g/cm2 for AP spine L1-L4) and 1 SD (+/- 0.012 g/cm2 for femur total) FRAX is a trademark of the [employer], a World Health Organization (WHO) Collaborating Center. Electronically signed by: Alvarado Constantino MD 05/25/2025 02:13 PM [facility]
--- NOTE | ~2025-05-25 | MM_ITS ---
EXAMINATION: MM SCREENING DIGITAL BREAST TOMOSYNTHESIS, BILATERAL CLINICAL INFORMATION: Screening. Asymptomatic. COMPARISON: Comparison made to multiple prior, most recent May 16, 2024, and most remote April 21, 2020. TECHNIQUE: Digital breast tomosynthesis is performed in mediolateral oblique and craniocaudal views along with computer-aided detection (CAD). Synthesized 2D images are generated from the tomosynthesis. FINDINGS: BREAST COMPOSITION: The breasts are heterogeneously dense, which may obscure small masses. RIGHT BREAST: No significant masses, suspicious calcifications or other abnormalities are seen. LEFT BREAST: Interval change in the size and number of multiple rounded/oval masses in this patient with multiple sonographically proven cysts. No significant masses, suspicious calcifications or other abnormalities are seen. MM/MM tomosynthesis screening BI IMPRESSION: BILATERAL BREASTS: Benign, no mammographic evidence of malignancy. Normal interval follow-up is recommended in 12 months. ASSESSMENT: BI-RADS: Category 2: Benign RECOMMENDATION: Routine annual mammography screening. FOLLOW-UP: 1 year F/U This examination should not preclude the clinical evaluation of a suspicious palpable abnormality. This patient's information was entered into a reminder system with a target due date for their next mammogram. Electronically signed by: Valentine Alexander MD 05/29/2025 08:18 PM [facility]
--- OUTSIDE RECORDS SUMMARY | 2025-05-25 15:29 | XMS_ITS | Clinical Summary ---
Author Organization [employer] Address [address] [place] [address] [address] [place] [address] Care Team Providers Care Template Maker Name Role Phone Unavailable Primary Care Provider [...] of 2) 2003 COVID-19 Vaccine ( season) 2025 01/27/2022, 07/27/2021, 10/16/2020, Additional history exists Influenza [...] complete this topic Insurance [facility] [place] [id number]
== END 2025-05-25 12:54 | disposition home or self-care (01) ==
LOC: HO.MAMMO 12:53
PROVIDERS: PCP Internal Medicine; Visit Provider Internal Medicine
DX: Z12.31 Encounter for screening mammogram for malignant neoplasm of breast (principal); Z13.820 Encounter for screening for osteoporosis; M85.852 Other specified disorders of bone density and structure, left thigh
CPT/HCPCS: 77063; 77067; 77080

== ENCOUNTER → 2025-05-25 14:00 | Outpatient (BNV) | payer MEDICARE, SELFPAY | PROVIDERS: PCP Internal Medicine; Visit Provider Radiology Diagnostic Radiology | DX: E28.39 Other primary ovarian failure (principal) | CPT/HCPCS: 77080 ==

== ENCOUNTER 2025-07-07 07:43 | Outpatient (REF) | payer MEDICARE, SELFPAY ==
--- OUTSIDE RECORDS SUMMARY | 2025-07-07 07:46 | XMS_ITS | Clinical Summary ---
Author Organization [employer] Address [address] [place] [address] [address] [place] [address] Care Team Providers Care Supplier Quality Name Role Phone Unavailable Primary Care Provider [...] to complete this topic Insurance [facility] MEDICARE ADVANTAGE
[2025-07-07 11:23] LABS: Alanine Aminotransferase 17 U/L (0-31); Anion Gap 11 (12-20); Aspartate Amino Transferase 22 U/L (5-31); Blood Urea Nitrogen 15 mg/dL (9-16); Calcium 9.6 mg/dL (8.4-10.2); Carbon Dioxide 27 mmol/L (22-29); Chloride 107 mmol/L (96-108); Cholesterol 155 mg/dL (<200); Estimated Glomerular Filt Rate > 60; HDL Cholesterol 44 mg/dL (>40); Potassium 4.3 mmol/L (3.3-5.1); Sodium 141 mmol/L (135-145); Triglycerides 140 mg/dL (<150)
[2025-07-07 11:28] LABS: Free T4 (Free Thyroxine) 0.89 ng/dL (0.71-1.85); Thyroid Stimulating Hormone 4.85 uIU/mL (0.32-4.0)
== END 2025-07-07 07:44 | disposition home or self-care (01) ==
LOC: HO.HMGCLDS 07:43
PROVIDERS: PCP Internal Medicine; Visit Provider Internal Medicine
DX: E11.9 Type 2 diabetes mellitus without complications (principal); I10 Essential (primary) hypertension; E78.5 Hyperlipidemia, unspecified; E03.9 Hypothyroidism, unspecified; Z13.21 Encounter for screening for nutritional disorder
CPT/HCPCS: 36415; 80048; 80061; 82306; 83036; 84439; 84443; 84450; 84460; 84481

== ENCOUNTER 2025-07-13 07:43 | Outpatient (AMB) | payer MEDICARE, SELFPAY ==
--- OUTSIDE RECORDS SUMMARY | 2025-07-13 07:46 | XMS_ITS | Clinical Summary ---
Author Organization [employer] Address [address] [place] [address] [address] [place] [address] Care Team Providers Care Commercial Administrator Name Role Phone Unavailable Primary Care Provider [...] patient's age to complete this topic Insurance [facility] MEDICARE ADVANTAGE
[2025-07-13 07:59] VITALS: BP 112/64; PULSE 66; RESP 16; TEMP 36.9; O2SAT 97; BMI 32.1
--- NOTE | 2025-07-13 07:59 | MHC.PC.OV ---
Vital Signs 07/13/25 07:59 Height 5 ft 4 in Weight 187 lb BMI 32.1 BP 112/64 Blood Pressure Location Rt brachial Position Sitting Respiration 16 Pulse 66 Pulse Source Pulse Oximeter Temp 98.4 F Temp Source Oral Pulse Oximetry (%) 97 Oxygen Delivery Method Room Air Intake Visit Reasons: 3 months f/up Intake Note: Pt is here today for her 3mo. f/u [employer] Program Technician Required: No Allergies Sulfa (Sulfonamide Antibiotics) Allergy (Unknown, Verified 07/13/25 08:31) Unknown Medication List - Last Reconciled 07/13/25 by Nesha Jay MD cholecalciferol (vitamin D3) 50 mcg PO DAILY levothyroxine 125 mcg PO DAILY lisinopril 10 mg PO DAILY rosuvastatin 5 mg PO Q2D 3 months Tobacco use date assessed: 07/13/25 Fall risk assessment: No Falls in past year Last assessed Fall Risk: 07/13/25 Dental Screening Dental Screen Date: 07/13/25 Did you have a dental visit in the last 12 months?: No Did you have a dental problem in the last 6 months where you did not have access to dental care?: No Was dental information given to patient?: Patient has dentist HPI 3 months f/up HPI Details 70-year-old lady with history of diabetes mellitus controlled reviewed lifestyle modifications, has acquired hypothyroidism, dyslipidemia and hypertension, here today for her follow-up. She has changed her way of eating drastically, has cut back on a lot of her carbohydrate intake and has been exercising regularly. For pasta she has switched to eating plant based pasta which is called Skinny Pasta . Her hemoglobin A1c has dropped from 7% on last visit to 6%. Urine is negative for microalbuminuria. Recent fasting labs also showed lipids, electrolytes renal function within normal limits. She is up-to-date with her diabetes retinopathy screening, goes to [facility] with no retinopathy seen per patient. She has been feeling more fatigued lately however. Latest thyroid levels showed TSH almost back to normal but free T4 is still at the lower end of the spectrum. [facility] Medical History (Updated 07/13/25 @ 08:50 by Nesha Jay MD) Diabetes mellitus type 2, controlled, without complications Osteopenia of left femoral neck Essential hypertension Family history of diabetes mellitus in first degree relative Vitamin D deficiency History of depression Seasonal allergies Osteoarthritis of left knee Atrophic vaginitis History of COVID-19 Urinary, incontinence, stress female Dyslipidemia Acquired hypothyroidism Surgical History H/O colonoscopy Hx of foot surgery History of cataract surgery History of right cataract surgery History of carpal tunnel surgery of right wrist H/O tubal ligation Hx of tonsillectomy History of excision of lesion Family History Mother Colon cancer Diabetes mellitus Father Diabetes mellitus Social History Housing: House Alcohol intake: never Patient Tobacco Use Status: Never used Tobacco e-Cigarette/Vaping Use: Never Used Current occupational status: employed 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 1. Little interest or pleasure in doing things: not at all 2. Feeling down, depressed, or hopeless: not at all 3. Trouble falling or staying asleep, or sleeping too much: not at all 4. Feeling tired or having little energy: not at all 5. Poor appetite or overeating: not at all 6. Feeling bad about yourself - or that you are a failure or have let yourself or your family down: not at all 7. Trouble concentrating on things, such as reading the newspaper or watching television: not at all 8. Moving or speaking so slowly that other people could have noticed. Or the opposite - being so fidgety or restless that you have been moving around a lot more than usual: not at all 9. Thoughts that you would be better off or of hurting yourself in some way: not at all Total score: 0 Depression Screening Interpretation: Negative Depression Screening Done: Yes Source: Developed by Drs. Alvarado Romano, Eliza Guzman, Raúl Feldman and colleagues, with an educational nabor from [employer]. Thrive Questionnaire Date Thrive assessed: 12/10/24 I am a: Patient What is your living situation today?: I have a steady place to live Within the past 12 months, did the food you bought not last and you didn't have the money to get more?: Never true Within the past 12 months, did you worry whether your food would run out before you got money to buy more?: Never true Do you have trouble paying for medicines?: No Do you have trouble getting transportation to medical appointments?: No Do you have trouble paying your heating and electricity bill?: No Do you have trouble taking care of your child, family member or friend?: No Do you have trouble with day-to-day activities such as bathing, preparing meals, shopping, managing finances, etc.?: No Are you currently unemployed and looking for a job?: No Are you interested in more education?: No Please select the resources that you would like help with: None Currently or been in a relationship where the following occur: No concerns reported THRIVE Score: 0 AUDIT C Alcohol Use Questionnaire (AUDIT-C) 1. How often do you have a drink containing alcohol?: Monthly or less 2. How many drinks containing alcohol do you have on a typical day when you are drinking?: 1 or 2 3. How often do you have six or more drinks on one occasion?: Never Total Score: 1 MARTINE-7 AMB Questionnaire MARTINE-7 Date MARTINE - 7 assessed: 12/17/24 Source: Developed by Drs. Alvarado Romano, Eliza Guzman, Raúl Feldman and colleagues, with an educational nabor from [employer]. Review of Systems Const Reports no additional complaints Eyes Details: Sees Dr. Paez, up-to-date with her diabetes screening Reports no additional complaints ENT Reports no additional complaints Card Reports no additional complaints Resp Reports no additional complaints GI Denies abdominal pain, Denies melena, Denies bloating and Denies heartburn Reports no additional complaints Musc Reports no additional complaints Neuro Reports no additional complaints Psych Reports no additional complaints Endo Reports no additional complaints Brian/Lymph Reports no additional complaints Aller/Immun Reports no additional complaints Physical exam (Primary Care) Vital Signs: Last Vital Signs Temp 98.4 F 07/13/25 07:59 Pulse 66 07/13/25 07:59 Resp 16 07/13/25 07:59 BP 112/64 07/13/25 07:59 Pulse Ox 97 07/13/25 07:59 Oxygen Delivery Method Room Air 07/13/25 07:59 BMI result Body Mass Index 32.1 BMI Assessment/Plan discussion: High BMI High, discussed plan: lifestyle, weight reduction, dietary and physical activity Tobacco/Smoking Status: Tobacco use Status Tobacco use date assessed 07/13/25 07/13/25 08:04 Patient Tobacco Use Status Never used Tobacco 07/13/25 07:59 e-Cigarette/Vaping Use Never Used 07/13/25 07:59 Depression Screening Interpretation: Negative Thrive Assessment: Date of Thrive Assessment Date Thrive assessed 12/10/24 07/13/25 07:59 Currently or been in a relationship where the following occur: No concerns reported Const Other: Alert oriented x3, no acute distress noted, ambulatory with normal gait Nutritional Appearance: obese HENMT Head: Yes normocephalic Ears: external ears normal General nose exam: Normal external nose present Face and sinus: Yes face symmetric Mouth: moist mucous membranes Eyes General: appearance normal, both eyes and all related structures Neck Neck: Yes full ROM, Yes no lymphadenopathy and Yes supple Thyroid: Thyroid normal Resp Effort & Inspection: normal respiratory effort and able to speak in complete sentences Auscultation: clear to auscultation bilaterally Cardio Rate: regular rate Rhythm: regular rhythm Heart sounds: S1 normal heart sound present and S2 normal heart sound present GI Inspection: Yes obesity Palpation (GI): Soft to palpation, nontender, no guarding and no masses Auscultation: normal bowel sounds Skin General skin exam: no rashes or lesions noted Neuro General: gait normal, tone normal, moves all extremities, Normal light touch and pain sensation, no focal motor deficits, CN's II-XI intact bilaterally and normal sensation to monofilament Cognition (Neuro): normal cognition Gait exam (Neuro): Normal gait present Extrem General: Yes full ROM, Yes no joint enlargement, Yes no clubbing, cyanosis or edema and Yes no calf tenderness Psych Appearance: grossly normal and well kempt Mental Status: mental status grossly normal Speech and movement: Normal speech and movement present Affect: normal affect Coding Level of Care Code Est Pt Level 4 (19564) Diagnoses Diabetes mellitus type 2, controlled, without complications E11.9 Acquired hypothyroidism E03.9 Dyslipidemia E78.5 Essential hypertension I10 Assessment & Plan Assessment & Plan (1) Diabetes mellitus type 2, controlled, without complications: Code(s): E11.9 - Type 2 diabetes mellitus without complications Category: Medical Plan: Recent lab results reviewed with patient, with sugar and hemoglobin A1c stable and at goal, with hemoglobin A1c now at 6%. Continue with diabetic diet and regular exercise with patient. Up-to-date with the yearly diabetes retinopathy screening, sees [facility]. Patient advised to inspect feet daily, for any signs of injury, callus or infection. Blood pressure goal is less than 130/80, goal LDL is less than 100 and goal hemoglobin A1c is less than 7% follow-up appointment made in-3--months, after fasting labs done. (2) Acquired hypothyroidism: Code(s): E03.9 - Hypothyroidism, unspecified Category: Medical Plan: Patient complaining of fatigue issues, with TSH improving but still above normal limits, and free T4 still on the lower end of normal. Will increase her levothyroxine dose to 137 mcg , take 1 tablet once a day, and repeat another TSH free T4 and free T3 in September 2025 (3) Dyslipidemia: Code(s): E78.5 - Hyperlipidemia, unspecified Category: Medical Plan: Reviewed recent fasting lipid profile with patient with levels within normal limit . Continue rosuvastatin 5 mg taken 1 tablet every other day , in addition to adherence to low-cholesterol diet and regular exercise, at least 30 minutes 3 to 4 times a week. Advised patient to make healthy food choices, eat more fruits, vegetables, whole grains, wild caught fish and low-fat dairy. Limit amount of meat and fried or fatty food products, as well as processed foods and fast foods. Follow-up scheduled with repeat fasting lipid panel in 3 months. (4) Essential hypertension: Code(s): I10 - Essential (primary) hypertension Category: Medical Plan: Blood pressure at goal of less than 130/80. Continue with lisinopril 10 mg daily Reinforced importance of following a low sodium diet, getting regular exercise, and lowering stress levels. Orders: Orders Lipid Panel 09/19/25 E03.9 - Hypothyroidism, unspecified, E11.9 - Type 2 diabetes mellitus without complications, E78.5 - Hyperlipidemia, unspecified, I10 - Essential (primary) hypertension, M85.852 - Other specified disorders of bone density and structure, left thigh Basic Metabolic Panel Fasting 09/19/25 E03.9 - Hypothyroidism, unspecified, E11.9 - Type 2 diabetes mellitus without complications, E78.5 - Hyperlipidemia, unspecified, I10 - Essential (primary) hypertension, M85.852 - Other specified disorders of bone density and structure, left thigh Free T4 (Free Thyroxine) 09/19/25 E03.9 - Hypothyroidism, unspecified, E11.9 - Type 2 diabetes mellitus without complications, E78.5 - Hyperlipidemia, unspecified, I10 - Essential (primary) hypertension, M85.852 - Other specified disorders of bone density and structure, left thigh Thyroid Stimulating Hormone 09/19/25 E03.9 - Hypothyroidism, unspecified, E11.9 - Type 2 diabetes mellitus without complications, E78.5 - Hyperlipidemia, unspecified, I10 - Essential (primary) hypertension, M85.852 - Other specified disorders of bone density and structure, left thigh Vitamin D 25-OH Total 09/19/25 E03.9 - Hypothyroidism, unspecified, E11.9 - Type 2 diabetes mellitus without complications, E78.5 - Hyperlipidemia, unspecified, I10 - Essential (primary) hypertension, M85.852 - Other specified disorders of bone density and structure, left thigh Microalbumin, Random (w Creat) 09/19/25 E03.9 - Hypothyroidism, unspecified, E11.9 - Type 2 diabetes mellitus without complications, E78.5 - Hyperlipidemia, unspecified, I10 - Essential (primary) hypertension, M85.852 - Other specified disorders of bone density and structure, left thigh Aspartate Amino Transferase 09/19/25 E03.9 - Hypothyroidism, unspecified, E11.9 - Type 2 diabetes mellitus without complications, E78.5 - Hyperlipidemia, unspecified, I10 - Essential (primary) hypertension, M85.852 - Other specified disorders of bone density and structure, left thigh Alanine Aminotransferase 09/19/25 E03.9 - Hypothyroidism, unspecified, E11.9 - Type 2 diabetes mellitus without complications, E78.5 - Hyperlipidemia, unspecified, I10 - Essential (primary) hypertension, M85.852 - Other specified disorders of bone density and structure, left thigh Hemoglobin A1c 09/19/25 E03.9 - Hypothyroidism, unspecified, E11.9 - Type 2 diabetes mellitus without complications, E78.5 - Hyperlipidemia, unspecified, I10 - Essential (primary) hypertension, M85.852 - Other specified disorders of bone density and structure, left thigh Triiodothyronine T3 Free 09/19/25 E03.9 - Hypothyroidism, unspecified, E11.9 - Type 2 diabetes mellitus without complications, E78.5 - Hyperlipidemia, unspecified, I10 - Essential (primary) hypertension, M85.852 - Other specified disorders of bone density and structure, left thigh Medications: New levothyroxine (Levoxyl) 137 mcg PO DAILY 90 tabs 1RF E03.9 - Hypothyroidism, unspecified Discontinued levothyroxine Discontinued Reason: Doctor's Order 125 mcg PO DAILY 90 tabs 0RF
== END 2025-07-13 08:47 | disposition home or self-care (01) ==
LOC: HO.HMCC 07:44
PROVIDERS: PCP Internal Medicine; Visit Provider Internal Medicine
DX: E11.9 Type 2 diabetes mellitus without complications (principal); E03.9 Hypothyroidism, unspecified; E78.5 Hyperlipidemia, unspecified; I10 Essential (primary) hypertension

== ENCOUNTER → 2025-07-13 07:43 | Outpatient (BNVA) | payer MEDICARE, SELFPAY | PROVIDERS: PCP Internal Medicine; Visit Provider Internal Medicine | DX: E11.9 Type 2 diabetes mellitus without complications (principal); E03.9 Hypothyroidism, unspecified; E78.5 Hyperlipidemia, unspecified; I10 Essential (primary) hypertension | CPT/HCPCS: 96127; 99212 ==